=== PATIENT | male | born 1940 | race Caucasian/White ===

== ENCOUNTER → 2017-06-30 | Outpatient (CLI) | payer MEDICARE, OTHER ==
[~2017-06-30] MED LIST: ALFU10TA2 PO; ENAL20TA PO; FINA5TAB2 PO; GLIP5TAB8 PO; HYDR25TA5 PO; MOBI15TA PO; PRAV20TA2 PO; VITA2000 PO
[2017-06-30 09:06] LABS: AUTOMATED NEUTROPHIL # 4.6 TH/MM3 (1.8-7.7); BASOPHIL % 0.5 % (0.0-2.0); EOSINOPHIL # 0.1 TH/MM3 (0-0.4); EOSINOPHIL % 0.7 % (0.0-4.0); HEMOGLOBIN 14.1 GM/DL (13.0-17.0); LYMPH % 24.1 % (9.0-44.0); LYMPHOCYTE # 1.7 TH/MM3 (1.0-4.8); MEAN CELL VOLUME 93.7 FL (80.0-100.0); MEAN CORPUSCULAR HEMOGLOBIN 32.3 PG (27.0-34.0); MEAN CORPUSCULAR HGB CONC 34.4 % (32.0-36.0); MEAN PLATELET VOLUME 7.1 FL (7.0-11.0); MONO % 7.5 % (0.0-8.0); MONOCYTE # 0.5 TH/MM3 (0-0.9); NEUT % 67.2 % (16.0-70.0); PLATELET COUNT 211 TH/MM3 (150-450); RED BLOOD COUNT 4.38 MIL/MM3 (4.50-5.90); RED CELL DISTRIBUTION WIDTH 13.4 % (11.6-17.2); WHITE BLOOD COUNT 6.9 TH/MM3 (4.0-11.0)
[2017-06-30 09:24] LABS: ALBUMIN 3.5 GM/DL (3.4-5.0); AST (GOT) 16 U/L (15-37); BICARBONATE 31.1 MEQ/L (21.0-32.0); BLOOD UREA NITROGEN 9 MG/DL (7-18); CALCIUM 9.2 MG/DL (8.5-10.1); CHLORIDE 102 MEQ/L (98-107); GLOMERULAR FILTRATION RATE 82 ML/MIN (>89); GLUCOSE,FASTING 127 MG/DL (74-99); SODIUM (NA) 140 MEQ/L (136-145)
[2017-06-30 09:25] LABS: ALT (GPT) 27 U/L (12-78); WESTERGREN SEDIMENTATION RATE 18 mm/hr (0-20)
[2017-06-30 09:27] LABS: ALKALINE PHOSPHATASE 72 U/L (45-117); TOTAL BILIRUBIN ADULT 0.4 MG/DL (0.2-1.0)
[2017-06-30 09:47] LABS: BILIRUBIN, URINE NEG (NEG); BLOOD, URINE NEG (NEG); GLUCOSE,URINE NEG (NEG); KETONE, URINE NEG (NEG); NITRITE,URINE NEG (NEG); URINE COLOR YELLOW (YELLW/STRAW); URINE LEUKOCYTE ESTERASE NEG (NEG)
[2017-06-30 09:53] LABS: SQUAMOUS EPITHELIAL CELL URINE <1 /hpf (0-5)
--- NOTE | 2017-06-30 20:45 | EKG ---
Date Performed: 06/30/2017 Time Performed: 09:22:38 PTAGE: 77 years EKG: Sinus rhythm LOW QRS VOLTAGE IN EXTREMITY LEADS BORDERLINE ECG Since the previous tracing, no significant change noted NO PREVIOUS TRACING DOCTOR: Mague Espinoza Interpretating Date/Time 06/30/2017 16:49:43
== END ==
LOC: CPRE 08:30
PROVIDERS: ATTEND Orthopaedic Surgery Sports Medicine
DX: Z01.812 Encounter for preprocedural laboratory examination (principal); Z01.810 Encounter for preprocedural cardiovascular examination; M25.50 Pain in unspecified joint; M16.11 Unilateral primary osteoarthritis, right hip; Z96.60 Presence of unspecified orthopedic joint implant; Z79.01 Long term (current) use of anticoagulants
CPT/HCPCS: 36415; 80053; 81001; 85025; 85610; 85652; 85730; 93005

== ENCOUNTER 2017-07-17 05:07 | Inpatient (IN) | payer MEDICARE, OTHER ==
[~2017-07-17] VITALS: Ht 182.9 cm; Wt 100.1 kg
[2017-07-17] MEDS ORDERED: POVIDONE IODINE 5% (ANTISEPSIS KIT) 4 APPLICATIONS EACH NARE PRN (05:45)
[2017-07-17] MEDS ORDERED: CHLORHEXIDINE GLUCONATE 4% SOLN 120 ML BTL TOPICAL SCH (05:45)
[2017-07-17] MEDS ORDERED: POVIDONE IODINE 7.5% SCRUB 118 ML BOTTLE TOPICAL SCH (05:45)
[2017-07-17] MEDS ORDERED: ceFAZolin 2 GM PREMIX 50 ML IV SCH (05:45)
[2017-07-17] MEDS ORDERED: SODIUM CHLORID 0.9% 500 ML IV PRN (05:45)
[2017-07-17] MEDS ORDERED: METOPROLOL TARTRATE 25 MG TAB PO PRN (05:45)
[2017-07-17] MEDS ORDERED: DEXAMETHASONE SOD PHOS 20 MG/5 ML VIAL IV PUSH ONE (05:45)
[2017-07-17] MEDS ORDERED: EXPAREL PERI-ARTICULAR INJECTION (TOTAL VOL. 60 ML) P-ARTICULR SCH ×2 (05:45)
[2017-07-17] MEDS ORDERED: CHLORHEXIDINE GLUCONATE 2 % 1 PACK (2 CLOTHS) TOPICAL PRN (05:45)
[2017-07-17] MEDS ORDERED: LACTATED RINGER'S 1000 ML IV PRN (05:45)
[2017-07-17] MEDS ORDERED: VANCOMYCIN 1 GM/200 ML PREMIX IV SCH (06:00)
[2017-07-17] MEDS ORDERED: GENTAMICIN SULFATE 80 MG/2 ML VIAL ONE (06:14)
[2017-07-17] MEDS ORDERED: NALOXONE HCL 0.4 MG/ML AMP IV PUSH PRN (06:30)
[2017-07-17] MEDS ORDERED: ZOLPIDEM TARTRATE 5 MG TAB PO PRN (06:30)
[2017-07-17] MEDS ORDERED: Post-op Orders (for Pharmacy) XX ONE (06:30)
[2017-07-17] MEDS ORDERED: MORPHINE SULFATE 4 MG/ML INJ IV PUSH PRN (06:30)
[2017-07-17] MEDS ORDERED: diphenhydrAMINE HCL 50 MG/ML VIAL IV PUSH PRN (06:30)
[2017-07-17] MEDS ORDERED: HYDR-3288 PO (06:33)
[2017-07-17] MEDS ORDERED: ASPI81CH6 CHEW (06:33)
[2017-07-17] MEDS ORDERED: TRANEXAMIC ACID IV SCH (07:00)
[2017-07-17] MEDS ORDERED: SODIUM CHLORIDE 0.9% IV SCH (07:00)
[2017-07-17] MEDS ORDERED: TRANEXAMIC PERI-ARTICULAR 3,000 MG/NS 100 ML P-ARTICULR SCH ×2 (07:00)
[2017-07-17] MEDS ORDERED: ONDANSETRON ODT 4 MG TAB PO PRN (07:15)
[2017-07-17] MEDS: SODIUM CHLOR 0.9% 1000 ML INJ 1,000 ML IV SCH (08:35)
[2017-07-17] MEDS ORDERED: DO NOT ADM ANY ANTICOAGULANT DRUGS PRN (08:40)
[2017-07-17] MEDS ORDERED: MIDAZOLAM HCL 2 MG/2 ML VIAL ONE (08:43)
[2017-07-17] MEDS ORDERED: *morphine SULFATE 4 MG/ML PERIprocedure ONLY ONE ×3 (08:56→09:24)
--- NOTE | 2017-07-17 08:58 | RADRPT ---
EXAM DATE/TIME: 07/17/2017 07:10 [facility] COMPARISON: No previous studies available for comparison. INDICATIONS : Right hip total arthroplasty. MEDICAL HISTORY : Unobtainable. SURGICAL HISTORY : Unobtainable. ENCOUNTER: Initial ACUITY: 1 day PAIN SCORE: Non-responsive. LOCATION: Right hip FINDINGS: Right total hip arthroplasty is present. Hardware appears intact. Alignment is anatomic. The adjacent pelvis is otherwise unremarkable. CONCLUSION: Satisfactory appearance post right TEDDY Jas Schulz MD on July 17, 2017 at 8:55 Board Certified Radiologist. This report was verified electronically.
--- NOTE | 2017-07-17 09:14 | MP ---
cc: Aryan Mcmanus MD DATE OF OPERATION: 07/17/2017 PREOPERATIVE DIAGNOSIS: Right hip osteoarthritis. POSTOPERATIVE DIAGNOSIS: Right hip osteoarthritis. PROCEDURE PERFORMED: Right total hip arthroplasty. SURGEON: Aryan Mcmanus MD. BRIM FLEXER: CRISTAL Collins. ANESTHESIA: General. ESTIMATED BLOOD LOSS: 200 mL. COMPLICATIONS: None. IMPLANTS USED: DePuy Corail size 54 solid [place] Gription cup, size 12 press fit standard offset Corail femoral stem, 36 mm cobalt chrome head, +1.5 neck, 36 mm highly cross-linked neutral polyethylene liner. JUSTIFICATION: This patient is a 77-year-old male with a history of severe end-stage osteoarthritis involving the right hip. He has severe disabling pain with standing, walking, ambulating and weight-bearing activities, and severe pain at rest. He has failed greater than 3 months of nonoperative conservative treatment to include medication therapy, injections, ambulatory assisted aids, home exercise program, activity modification and weight loss. X-rays of the right hip revealed severe osteoarthritis with [id number] joint space narrowing, subchondral sclerosis, subchondral cyst, osteophyte formation with superolateral subluxation. The patient was counseled as to the risks, benefits, and alternatives to a total hip arthroplasty. The risks were discussed, which include, but not limited to anesthesia, bleeding, infection, damage to nerves and blood vessels, pain, stiffness, fracture dislocations, leg length discrepancies, blood clots, pulmonary embolism, and even . The patient's pain is severe. He favored the benefits over the risks and did wish to proceed with surgery. PROCEDURE IN DETAIL: Written consent was obtained. The patient identified by name, taken to the operating room, placed supine on the operating room table. General anesthesia was administered, as well as two grams of IV Ancef and 1 gram of IV vancomycin. The right foot was placed in the padded traction boot, as well as the left foot. All bony prominences and pressure points were well padded. The right hip and right lower extremity prepped and draped using Isuprel alcohol, Hibiclens solution and ChloraPrep solution. After a time-out was performed, a longitudinal incision made over the anterolateral aspect of the right hip. The fascial layer was incised. Dissection was carried over the tensor fascia shaina and beneath the rectus femoris to allow exposure of the anterior hip capsule. A capsulotomy incision was performed. An oscillating saw was used to perform a femoral neck cut. The osteoarthritic femoral head and neck component was removed. A #10 blade scalpel was used to excise the labrum. Sequential reaming began at size 45 and was carried through to size 54. A solid [place] Gription cup size 54 was then implanted in approximately 45 degrees of abduction, 10 degrees of anteversion. There was good purchase and fixation after insertion of the cup. A screw hole eliminator was placed, followed by the neutral highly cross-linked polyethylene liner. The liner was impacted in place and tested for stability. Attention was turned to the femur. The leg was externally rotated, extended and adducted. The capsule was released off the undersurface of the greater trochanter to allow for elevation and lateralization of the femur. A box cutting osteotome was used and entered into the intramedullary canal of the femur, followed by canal finder and sequential broaching to size 12. Calcar planer was used to plane the calcar. Trial head and neck combinations were evaluated and final components implanted with the current components. The leg could achieve external rotation of 70 degrees and extension all the way down to the ground without evidence of anterior instability or impingement. Fluoroscopic imaging showed appropriate implantation of components. The surgical wound was thoroughly irrigated with sterile saline pulse lavage antibiotic impregnated solution. The fascial layer was closed with #1 Vicryl suture. Subcutaneous layer 2-0 Vicryl suture and skin was closed with Dermabond. Sterile dressing applied. The patient tolerated the procedure well. No intraoperative complications noted. Stephen Cook, Physician Wire Roller Certified was present for the entire procedure to include the patient positioning and the procedure itself. The medical necessity of a physician web production assistant was indicated in this case due to the complexity of the procedure. He assisted with appropriate manipulation of the leg and also retraction of muscle, tendon, bone and neurovascular strictures. He assisted with preparation of bone and also implantation of the prosthetic replacement. Aryan Mcmanus MD [facility] , 08:25 AM , 09:13 AM
[2017-07-17] MEDS: PRAVASTATIN SOD 20 MG TAB PO SCH (11:19)
[2017-07-17] MEDS: FINASTERIDE 5 MG TAB PO SCH (11:19)
[2017-07-17] MEDS: ACETAMINOPHEN/HYDROcodone 325 MG/10 MG TAB PO PRN ×2 (11:20→21:30)
--- NOTE | 2017-07-17 11:24 | HHI.FF ---
Face to Face Verification Diagnosis: (1) Primary localized osteoarthrosis, pelvic region and thigh Physical Therapy Gait training, Safety evaluation, Transfer training, bed to chair Hip: Total hip, Protocol: Right, Progress to weight bearing Right LE Weight Bearing: WB as tolerated Nursing RN: 3 days/week x 2 weeks Nursing: Dressing changes Dressing Changes: Daily dressing change I have seen patient Agustín GunterJr on 07/17/17. My clinical findings support the need for the requested home health care services because: Limited ability to care for self High risk of falls I certify that my clinical findings support that this patient is homebound because: Post-op weakness Unsteady gait/balance Aryan Cook July 17, 2017 11:24
--- NOTE | 2017-07-17 11:24 | HHI.DCPOC ---
Discharge Care Plan Diagnosis: (1) Primary localized osteoarthrosis, pelvic region and thigh Your Health Problems Are: Difficulty with ADL Goals to Promote Your Health * To prevent worsening of your condition and complications * To maintain your health at the optimal level Directions to Meet Your Goals Take your medications as prescribed Follow your dietary instruction Follow activity as directed Keep your appointments as scheduled Take your immunizations and boosters as scheduled If your symptoms worsen call your PCP, if no PCP go to Urgent Care Center or Emergency Room Smoking is Dangerous to Your Health. Avoid second hand smoke Call the 24-hour hour crisis hotline for domestic abuse at Aryan Cook July 17, 2017 11:24
[2017-07-17] MEDS: TAMSULOSIN HCL 0.4 MG CAP PO SCH (11:29)
[2017-07-17 12:00] VITALS: BP 128/63; PULSE 103; RESP 17; TEMP 97.2; O2SAT 98
[2017-07-17] MEDS ORDERED: ESMOLOL HCL 100 MG/10 ML VIAL IV ONE (12:00)
[2017-07-17] MEDS ORDERED: GLYCOPYRROLATE 1 MG/5 ML SYRINGE IV PUSH ONE (12:00)
[2017-07-17] MEDS ORDERED: PROPOFOL 200 MG/20 ML AMP IV ONE (12:00)
[2017-07-17] MEDS ORDERED: PHENYLEPH/NS 1000 MCG/10 ML SYR IV ONE (12:00)
[2017-07-17] MEDS ORDERED: ePHEDrine/NS 25 MG/5 ML SYRINGE IV ONE (12:00)
[2017-07-17] MEDS ORDERED: NEOSTIGMINE 5 MG/5 ML SYRINGE IV PUSH ONE (12:00)
[2017-07-17] MEDS ORDERED: METOPROLOL TARTRATE 5 MG/5 ML VIAL IV ONE (12:00)
[2017-07-17] MEDS ORDERED: ONDANSETRON HCL 4 MG/2 ML VIAL IV PUSH ONE (12:00)
[2017-07-17] MEDS ORDERED: ROCURONIUM INJ 50 MG/5 ML SYRINGE IV PUSH ONE (12:00)
--- NOTE | 2017-07-17 14:11 | PD.CONS ---
HPI Service [facility] Consult Requested By Dr. Mcmanus Reason for Consult Medical management Primary Care Physician Yaz Treadwell Diagnoses: Past Family Social History Allergies: Coded Allergies: No Known Allergies (Verified Adverse Reaction, Unknown, 07/17/17) Past Medical History Osteoarthritis Hypertension Diabetes mellitus Hyperlipidemia BPH Past Surgical History Lymph node removal from axilla Hemorrhoid surgery Reported Medications Alfuzosin 10 mg daily Pravastatin 20 mg daily Enalapril 20 mg daily Mobic 15 mg twice weekly HCTZ 25 mg daily Glipizide Vitamin D3 daily Finasteride 5 mg daily Family History Mother had cancer. Sister of [place]. Social History Quit smoking 30 years ago. Drinks 1 beer twice weekly. Denies illicit drug use. Physical Exam Vital Signs Vital Signs Date Time Temp Pulse Resp B/P (MAP) Pulse Ox O2 Delivery O2 Flow Rate FiO2 07/17/17 12:00 97.2 103 17 128/63 (84) 98 07/17/17 09:30 97.4 98 14 134/62 (86) 98 Nasal Cannula 2 07/17/17 09:15 93 14 134/63 (86) 97 Nasal Cannula 2 07/17/17 09:00 96 17 138/62 (87) 97 Nasal Cannula 2 07/17/17 08:45 101 18 139/63 (88) 97 Nasal Cannula 2 07/17/17 08:37 97.7 104 14 130/64 (86) 99 Nasal Cannula 2 07/17/17 05:40 98.3 128 16 133/75 (94) 98 Physical Exam GENERAL: Elderly male in no acute distress. Sitting up in a chair. HEENT: Normocephalic, atraumatic. Pupils equal, round and reactive. Extraocular movements intact. No scleral icterus. No injection or drainage. Oropharynx is clear. Mucous membranes are moist. CARDIOVASCULAR: Regular rate and rhythm without murmurs, gallops, or rubs. RESPIRATORY: Clear to auscultation. No wheezes, rales, or rhonchi. Breathing is non-labored. GASTROINTESTINAL: Abdomen soft, non-tender, nondistended. EXTREMITIES: No lower extremity edema. No calf tenderness. PSYCH: Alert and oriented x 3. Imaging Last Impressions Hip X-Ray 07/17/17 0000 Signed Impressions: Service Date/Time: Monday, July 17, 2017 07:10 - CONCLUSION: Satisfactory appearance post right TEDDY Jas Schulz MD Assessment and Plan Assessment and Plan 1. Osteoarthritis: Status post right total hip arthroplasty. Management per orthopedic surgery. Continue pain control, bowel regimen, physical therapy. 2. Diabetes mellitus: Monitor Accu-Cheks and cover with sliding scale insulin. Continue glipizide. 3. BPH: Continue alfuzosin, finasteride. 4. Hypertension: Continue enalapril, HCTZ. 5. Hyperlipidemia: Continue statin. 6. DVT prophylaxis: Lovenox. Cesar Perez MD July 17, 2017 14:11
[2017-07-17 16:00] VITALS: BP 111/63; PULSE 98; RESP 17; TEMP 97.2; O2SAT 98
--- NOTE | 2017-07-17 16:03 | RADRPT ---
EXAM DATE/TIME: 07/17/2017 15:40 [facility] COMPARISON: No previous studies available for comparison. INDICATIONS : Post operative right hip. MEDICAL HISTORY : None. SURGICAL HISTORY : None. ENCOUNTER: Initial ACUITY: 1 day PAIN SCORE: 0/10 LOCATION: Right hip. FINDINGS: Examination of the right hip was performed with AP Pelvis. Post surgical changes following right hip replacement are noted. Femoral and acetabular components ar e well seated and satisfactorily aligned. There are no acute bony complications. CONCLUSION: Satisfactory postoperative appearance following right hip replacement. Amrik Dang MD on July 17, 2017 at 16:00 Board Certified Radiologist. This report was verified electronically.
[2017-07-17 19:47] VITALS: BP 130/61; PULSE 91; RESP 18; TEMP 97.2; O2SAT 96
[2017-07-17] MEDS: HYDROCHLOROTHIAZIDE 25 MG TAB PO SCH (21:28)
[2017-07-18 00:02] VITALS: BP 118/66; PULSE 107; RESP 18; TEMP 97.6; O2SAT 98
[2017-07-18] MEDS: SODIUM CHLOR 0.9% 1000 ML INJ 1,000 ML IV SCH ×3 (04:04→23:30)
[2017-07-18] MEDS: ACETAMINOPHEN/HYDROcodone 325 MG/10 MG TAB PO PRN ×4 (04:04→20:51)
[2017-07-18 05:24] LABS: HEMATOCRIT 36.9 % (39.0-51.0); HEMOGLOBIN 12.5 GM/DL (13.0-17.0); MEAN CELL VOLUME 93.5 FL (80.0-100.0); MEAN CORPUSCULAR HEMOGLOBIN 31.6 PG (27.0-34.0); MEAN CORPUSCULAR HGB CONC 33.8 % (32.0-36.0); MEAN PLATELET VOLUME 7.3 FL (7.0-11.0); PLATELET COUNT 198 TH/MM3 (150-450); RED BLOOD COUNT 3.95 MIL/MM3 (4.50-5.90); RED CELL DISTRIBUTION WIDTH 13.4 % (11.6-17.2); WHITE BLOOD COUNT 12.4 TH/MM3 (4.0-11.0)
[2017-07-18 05:47] LABS: BICARBONATE 32.2 MEQ/L (21.0-32.0); CALCIUM 8.3 MG/DL (8.5-10.1); CREATININE 0.92 MG/DL (0.60-1.30)
--- NOTE | 2017-07-18 07:50 | PD.ORT.PN ---
Subjective Post Op Day #: 1 Subjective Remarks pain controlled. Objective Vitals Vital Signs Date Time Temp Pulse Resp B/P (MAP) Pulse Ox O2 Delivery O2 Flow Rate FiO2 07/18/17 00:02 97.6 107 18 118/66 (83) 98 07/17/17 19:47 97.2 91 18 130/61 (84) 96 07/17/17 16:00 97.2 98 17 111/63 (79) 98 07/17/17 12:00 97.2 103 17 128/63 (84) 98 07/17/17 09:30 97.4 98 14 134/62 (86) 98 Nasal Cannula 2 07/17/17 09:15 93 14 134/63 (86) 97 Nasal Cannula 2 07/17/17 09:00 96 17 138/62 (87) 97 Nasal Cannula 2 07/17/17 08:45 101 18 139/63 (88) 97 Nasal Cannula 2 07/17/17 08:37 97.7 104 14 130/64 (86) 99 Nasal Cannula 2 I/O 07/17/17 07/17/17 07/17/17 07/18/17 07/18/17 07/18/17 06:59 14:59 22:59 06:59 14:59 22:59 Intake Total 238 ml 450 ml 720 ml Output Total 300 ml Balance -62 ml 450 ml 720 ml Intake Oral 30 ml 450 ml 720 ml IV Total 58 ml Other 150 ml Output Estimated Blood Loss 300 ml # Voids 0 2 5 # Bowel Movements 0 Result Diagram: 07/18/17 0506 07/18/17 0506 Objective Remarks in chair, nad dressing c/d/i thigh soft neg homans nvi Assessment & Plan Ortho Post Op Day #: 1 Problem List: Assessment and Plan s/p R TEDDY wbat ok to maintain dressing unless saturated lovenox, d/c on asa81 d/c planning to snf rx in chart f/up dr. cortes 2 weeks Aryan Cook July 18, 2017 07:50
[2017-07-18 08:00] VITALS: BP 118/64; PULSE 95; RESP 18; TEMP 97.9; O2SAT 95
--- NOTE | 2017-07-18 10:00 | HHI.PR ---
Subjective Remarks Follow-up for s/p right TEDDY, DM, HTN, HLD, BPH. Patient has no specific medical complaints today. Reports right hip pain is fairly well controlled with pain medications. Denies any fever/chills, lightheadedness/dizziness, chest pain, shortness of breath, or abdominal complaints. His last bowel movement was on Sunday 07/16. He is tolerating oral intake. Vital signs reviewed and stable. Objective Vitals Vital Signs Date Time Temp Pulse Resp B/P (MAP) Pulse Ox O2 Delivery O2 Flow Rate FiO2 07/18/17 08:00 97.9 95 18 118/64 (82) 95 07/18/17 00:02 97.6 107 18 118/66 (83) 98 07/17/17 19:47 97.2 91 18 130/61 (84) 96 07/17/17 16:00 97.2 98 17 111/63 (79) 98 07/17/17 12:00 97.2 103 17 128/63 (84) 98 I/O 07/17/17 07/17/17 07/17/17 07/18/17 07/18/17 07/18/17 07:00 15:00 23:00 07:00 15:00 23:00 Intake Total 238 ml 450 ml 720 ml Output Total 300 ml Balance -62 ml 450 ml 720 ml Intake Oral 30 ml 450 ml 720 ml IV Total 58 ml Other 150 ml Output Estimated Blood Loss 300 ml # Voids 0 2 5 # Bowel Movements 0 Result Diagram: 07/18/17 0506 07/18/17 0506 Imaging Last Impressions Hip and Pelvis X-Ray 07/17/17 0000 Signed Impressions: Service Date/Time: Monday, July 17, 2017 15:40 - CONCLUSION: Satisfactory postoperative appearance following right hip replacement. Amrik Dang MD Hip X-Ray 07/17/17 0000 Signed Impressions: Service Date/Time: Monday, July 17, 2017 07:10 - CONCLUSION: Satisfactory appearance post right TEDDY Jas Schulz MD Objective Remarks GENERAL: Well-nourished, well-developed pleasant male patient in [employer]. SKIN: Warm and dry. No rash. HEENT: Normocephalic. Atraumatic. Pupils equal and round. Mucous membranes pink and moist. CARDIOVASCULAR: Regular rate and rhythm. No murmur appreciated. RESPIRATORY: No accessory muscle use. Clear to auscultation. Breath sounds equal bilaterally. GASTROINTESTINAL: Abdomen soft, non-tender, nondistended. Normoactive bowel sounds x4. MUSCULOSKELETAL: No obvious deformities. Trace bilateral lower extremity edema. Right hip with surgical dressing, CDI. NEUROLOGICAL: Awake and alert. No obvious cranial nerve deficits. Motor grossly within normal limits. Moving all extremities spontaneously. Normal speech. PSYCHIATRIC: Appropriate mood and affect; insight and judgment normal. Procedures 07/17/17 - right total hip arthroplasty by Dr. Mcmanus Medications and IVs Current Medications Medications (Trade) Dose Ordered Sig/Kasandra Route Start Time Stop Time Status Last Admin Lactated Ringer's 1,000 ml @ 30 mls/hr Q24H PRN IV 07/17/17 05:45 07/20/17 05:44 07/17/17 05:45 Sodium Chloride 500 ml @ 30 mls/hr [id number] PRN IV 07/17/17 05:45 07/20/17 05:44 (Lopressor) 25 mg POWDER BLENDER AND POURER PRN PO 07/17/17 05:45 07/20/17 05:44 (Betadine 5% Antisepsis Kit) 1 applic POWDER BLENDER AND POURER PRN EACH NARE 07/17/17 05:45 07/20/17 05:44 07/17/17 06:00 (Chlorhexidine 2% Cloth) 3 pack POWDER BLENDER AND POURER PRN TOPICAL 07/17/17 05:45 07/20/17 05:44 07/17/17 05:30 (Betadine 7.5% Scrub) 1 applic ONCE TOPICAL 07/17/17 05:45 07/20/17 05:44 07/17/17 05:45 (Hibiclens 4% Top Soln) 1 applic ONCE TOPICAL 07/17/17 05:45 07/20/17 05:44 Cefazolin Sodium/ Dextrose 50 ml @ 100 mls/hr POWDER BLENDER AND POURER IV 07/17/17 05:45 07/20/17 05:44 07/17/17 06:10 (Vasotec) 20 mg DAILY PO 07/18/17 09:00 (Proscar) 5 mg DAILY PO 07/17/17 09:00 07/17/17 11:19 (Glucotrol) 2.5 mg BID PO 07/18/17 09:00 (Hydrodiuril) 25 mg HS PO 07/17/17 21:00 07/17/17 21:28 (Pravachol) 20 mg DAILY PO 07/17/17 09:00 07/17/17 11:19 (Flomax) 0.4 mg DAILY PO 07/17/17 10:00 07/17/17 11:29 Sodium Chloride 1,000 ml @ 100 mls/hr Q10H IV 07/17/17 07:30 07/18/17 04:04 (Lovenox Inj) 40 mg Q24H SQ 07/18/17 08:00 07/27/17 08:01 (Morphine Inj) 3 mg Q3H PRN IV PUSH 07/17/17 06:30 ([place] 10-325 Mg) 1 tab Q4H PRN PO 07/17/17 06:30 07/18/17 04:04 ([place] 10-325 Mg) 2 tab Q6H PRN PO 07/17/17 06:30 07/17/17 21:30 (Theragran M Tab) 1 tab BID PO 07/18/17 21:00 09/16/17 20:59 (Zofran Odt) 4 mg Q6H PRN PO 07/17/17 07:15 (Colace) 100 mg BID PO 07/18/17 21:00 (Ambien) 5 mg HS PRN PO 07/17/17 06:30 (Narcan Inj) 0.4 mg UNSCH PRN IV PUSH 07/17/17 06:30 (Benadryl Inj) 25 mg Q6H PRN IV PUSH 07/17/17 06:30 A/P Assessment and Plan 77-year-old male with history of osteoarthritis, hypertension, hyperlipidemia, diabetes mellitus, BPH, admitted to [facility] for right total hip arthroplasty by Dr. Mcmanus. Hospitalist consulted for medical management. Osteoarthritis s/p right total hip arthroplasty: Surgery 07/17/[address] Mcmanus -Pain control with [place] prn, IV morphine prn -DVT prophylaxis with Lovenox, per Ortho -Continue physical therapy -Cleared for discharge to rehab by orthopedics Hypertension/hyperlipidemia: Chronic, stable -Continue patient's enalapril, HCTZ, statin -Monitor BP, adjust antihypertensives as needed Diabetes mellitus: Chronic, stable -Continue patient's glipizide -Monitor Accu-Cheks, cover with SSI -Diabetic diet BPH: Chronic -Continue patient's alfuzosin and finasteride -Patient voiding spontaneously DVT prophylaxis: Lovenox Discharge Planning Patient is medically clear for discharge to SNF when arrangements made. Mirella Escalera PA-C July 18, 2017 10:00
[2017-07-18] MEDS: ENALAPRIL MALEATE 10 MG TAB PO SCH (10:48)
[2017-07-18] MEDS: PRAVASTATIN SOD 20 MG TAB PO SCH (10:48)
[2017-07-18] MEDS: glipiZIDE 5 MG TAB PO SCH ×2 (10:48→20:50)
[2017-07-18] MEDS: FINASTERIDE 5 MG TAB PO SCH (10:48)
[2017-07-18] MEDS: TAMSULOSIN HCL 0.4 MG CAP PO SCH (10:48)
[2017-07-18] MEDS: ENOXAPARIN SODIUM 40 MG/0.4 ML SYRINGE SQ SCH (10:52)
[2017-07-18 12:00] VITALS: BP 130/61; PULSE 98; RESP 17; TEMP 98.8; O2SAT 95
[2017-07-18 20:00] VITALS: BP 120/58; PULSE 96; RESP 20; TEMP 98.2; O2SAT 97
[2017-07-18] MEDS: DOCUSATE SODIUM 100 MG CAP PO SCH (20:49)
[2017-07-18] MEDS: MULTIVITAMINS/MINERALS THERAPEUTIC TAB PO SCH (20:49)
[2017-07-18] MEDS: HYDROCHLOROTHIAZIDE 25 MG TAB PO SCH (20:50)
[2017-07-19] VITALS: BP 122/72; PULSE 115; RESP 20; TEMP 98; O2SAT 94
[2017-07-19 05:41] LABS: HEMATOCRIT 36.4 % (39.0-51.0); HEMOGLOBIN 12.4 GM/DL (13.0-17.0); MEAN CELL VOLUME 94.2 FL (80.0-100.0); MEAN CORPUSCULAR HEMOGLOBIN 32.2 PG (27.0-34.0); MEAN CORPUSCULAR HGB CONC 34.2 % (32.0-36.0); MEAN PLATELET VOLUME 7.2 FL (7.0-11.0); PLATELET COUNT 179 TH/MM3 (150-450); RED BLOOD COUNT 3.86 MIL/MM3 (4.50-5.90); RED CELL DISTRIBUTION WIDTH 13.4 % (11.6-17.2); WHITE BLOOD COUNT 9.7 TH/MM3 (4.0-11.0)
[2017-07-19 06:12] LABS: BICARBONATE 30.8 MEQ/L (21.0-32.0); CALCIUM 8.6 MG/DL (8.5-10.1); CREATININE 0.83 MG/DL (0.60-1.30)
[2017-07-19] MEDS: ACETAMINOPHEN/HYDROcodone 325 MG/10 MG TAB PO PRN ×3 (06:50→21:35)
--- NOTE | 2017-07-19 07:18 | PD.ORT.PN ---
Subjective Post Op Day #: 2 Subjective Remarks pain controlled. doing well. Objective Vitals Vital Signs Date Time Temp Pulse Resp B/P (MAP) Pulse Ox O2 Delivery O2 Flow Rate FiO2 07/19/17 00:00 98.0 115 20 122/72 (89) 94 07/18/17 20:00 98.2 96 20 120/58 (78) 97 07/18/17 19:10 Room Air 07/18/17 12:00 98.8 98 17 130/61 (84) 95 07/18/17 08:00 97.9 95 18 118/64 (82) 95 I/O 07/18/17 07/18/17 07/18/17 07/19/17 07/19/17 07/19/17 07:00 15:00 23:00 07:00 15:00 23:00 Intake Total 720 ml 1020 ml Balance 720 ml 1020 ml Intake Oral 720 ml 720 ml IV Total 300 ml # Voids 5 4 # Bowel Movements 0 0 Result Diagram: 07/19/17 0505 07/19/17 0505 Objective Remarks in chair, nad dressing c/d/i thigh soft neg homans nvi Assessment & Plan Ortho Post Op Day #: 2 Problem List: Assessment and Plan s/p R TEDDY wbat ok to maintain dressing unless saturated lovenox, d/c on asa81 d/c planning to snf - likely Thurs rx in chart f/up dr. cortes 2 weeks Aryan Cook July 19, 2017 07:18
[2017-07-19 08:00] VITALS: BP 119/58; PULSE 99; RESP 18; TEMP 97.9; O2SAT 96
[2017-07-19] MEDS: MULTIVITAMINS/MINERALS THERAPEUTIC TAB PO SCH ×2 (08:58→21:34)
[2017-07-19] MEDS: ENALAPRIL MALEATE 10 MG TAB PO SCH (08:58)
[2017-07-19] MEDS: glipiZIDE 5 MG TAB PO SCH ×2 (08:58→21:35)
[2017-07-19] MEDS: DOCUSATE SODIUM 100 MG CAP PO SCH (08:59)
[2017-07-19] MEDS: TAMSULOSIN HCL 0.4 MG CAP PO SCH (08:59)
[2017-07-19] MEDS: FINASTERIDE 5 MG TAB PO SCH (08:59)
[2017-07-19] MEDS: PRAVASTATIN SOD 20 MG TAB PO SCH (08:59)
[2017-07-19] MEDS: ENOXAPARIN SODIUM 40 MG/0.4 ML SYRINGE SQ SCH (09:00)
[2017-07-19] MEDS: SODIUM CHLOR 0.9% 1000 ML INJ 1,000 ML IV SCH ×2 (09:30→19:30)
--- NOTE | 2017-07-19 11:26 | HHI.PR ---
Subjective Remarks Follow up for R TEDDY, DM, HTN, HLD, BPH. Pain well controlled, currently 3-06/06. Still no BM since Sunday 07/16, although denies any abdominal pain or nausea/ vomiting. Tolerating oral intake. Denies any other medical complaints at this time. Objective Vitals Vital Signs Date Time Temp Pulse Resp B/P (MAP) Pulse Ox O2 Delivery O2 Flow Rate FiO2 07/19/17 08:00 97.9 99 18 119/58 (78) 96 07/19/17 00:00 98.0 115 20 122/72 (89) 94 07/18/17 20:00 98.2 96 20 120/58 (78) 97 07/18/17 19:10 Room Air 07/18/17 12:00 98.8 98 17 130/61 (84) 95 I/O 07/18/17 07/18/17 07/18/17 07/19/17 07/19/17 07/19/17 06:59 14:59 22:59 06:59 14:59 22:59 Intake Total 720 ml 1020 ml Balance 720 ml 1020 ml Intake Oral 720 ml 720 ml IV Total 300 ml # Voids 5 4 # Bowel Movements 0 0 Result Diagram: 07/19/17 0505 07/19/17 0505 Imaging Last Impressions Hip and Pelvis X-Ray 07/17/17 0000 Signed Impressions: Service Date/Time: Monday, July 17, 2017 15:40 - CONCLUSION: Satisfactory postoperative appearance following right hip replacement. Amrik Dang MD Hip X-Ray 07/17/17 0000 Signed Impressions: Service Date/Time: Monday, July 17, 2017 07:10 - CONCLUSION: Satisfactory appearance post right TEDDY Jas Schulz MD Objective Remarks GENERAL: Well-nourished, well-developed pleasant male patient in [facility]. SKIN: Warm and dry. No rash. HEENT: Normocephalic. Atraumatic. Pupils equal and round. Mucous membranes pink and moist. CARDIOVASCULAR: Regular rate and rhythm. No murmur appreciated. RESPIRATORY: No accessory muscle use. Clear to auscultation. Breath sounds equal bilaterally. GASTROINTESTINAL: Abdomen soft, non-tender, nondistended. Normoactive bowel sounds x4. MUSCULOSKELETAL: No obvious deformities. Trace to 1+ bilateral lower extremity edema. Right hip with surgical dressing, CDI. NEUROLOGICAL: Awake and alert. No obvious cranial nerve deficits. Motor grossly within normal limits. Moving all extremities spontaneously. Normal speech. PSYCHIATRIC: Appropriate mood and affect; insight and judgment normal. Procedures 07/17/17 - right total hip arthroplasty by Dr. Mcmanus Medications and IVs Current Medications Medications (Trade) Dose Ordered Sig/Kasandra Route Start Time Stop Time Status Last Admin Lactated Ringer's 1,000 ml @ 30 mls/hr Q24H PRN IV 07/17/17 05:45 07/20/17 05:44 07/17/17 05:45 Sodium Chloride 500 ml @ 30 mls/hr [id number] PRN IV 07/17/17 05:45 07/20/17 05:44 (Lopressor) 25 mg PREPARATION SUPERVISOR FREEZING PRN PO 07/17/17 05:45 07/20/17 05:44 (Betadine 5% Antisepsis Kit) 1 applic PREPARATION SUPERVISOR FREEZING PRN EACH NARE 07/17/17 05:45 07/20/17 05:44 07/17/17 06:00 (Chlorhexidine 2% Cloth) 3 pack PREPARATION SUPERVISOR FREEZING PRN TOPICAL 07/17/17 05:45 07/20/17 05:44 07/17/17 05:30 (Betadine 7.5% Scrub) 1 applic ONCE TOPICAL 07/17/17 05:45 07/20/17 05:44 07/17/17 05:45 (Hibiclens 4% Top Soln) 1 applic ONCE TOPICAL 07/17/17 05:45 07/20/17 05:44 Cefazolin Sodium/ Dextrose 50 ml @ 100 mls/hr PREPARATION SUPERVISOR FREEZING IV 07/17/17 05:45 07/20/17 05:44 07/17/17 06:10 (Vasotec) 20 mg DAILY PO 07/18/17 09:00 07/19/17 08:58 (Proscar) 5 mg DAILY PO 07/17/17 09:00 07/19/17 08:59 (Glucotrol) 2.5 mg BID PO 07/18/17 09:00 07/19/17 08:58 (Hydrodiuril) 25 mg HS PO 07/17/17 21:00 07/18/17 20:50 (Pravachol) 20 mg DAILY PO 07/17/17 09:00 07/19/17 08:59 (Flomax) 0.4 mg DAILY PO 07/17/17 10:00 07/19/17 08:59 Sodium Chloride 1,000 ml @ 100 mls/hr Q10H IV 07/17/17 07:30 07/18/17 04:04 (Lovenox Inj) 40 mg Q24H SQ 07/18/17 08:00 07/27/17 08:01 07/19/17 09:00 (Morphine Inj) 3 mg Q3H PRN IV PUSH 07/17/17 06:30 ([place] 10-325 Mg) 1 tab Q4H PRN PO 07/17/17 06:30 07/19/17 06:50 ([place] 10-325 Mg) 2 tab Q6H PRN PO 07/17/17 06:30 07/18/17 15:48 (Theragran M Tab) 1 tab BID PO 07/18/17 21:00 09/16/17 20:59 07/19/17 08:58 (Zofran Odt) 4 mg Q6H PRN PO 07/17/17 07:15 (Colace) 100 mg BID PO 07/18/17 21:00 07/19/17 08:59 (Ambien) 5 mg HS PRN PO 07/17/17 06:30 (Narcan Inj) 0.4 mg UNSCH PRN IV PUSH 07/17/17 06:30 (Benadryl Inj) 25 mg Q6H PRN IV PUSH 07/17/17 06:30 A/P Assessment and Plan 77-year-old male with history of osteoarthritis, hypertension, hyperlipidemia, diabetes mellitus, BPH, admitted to [facility] for right total hip arthroplasty by Dr. Mcmanus. Hospitalist consulted for medical management. Osteoarthritis s/p right total hip arthroplasty: Surgery 07/17/[address] Mcmanus -Pain control with [place] prn, IV morphine prn -DVT prophylaxis with Lovenox, per Ortho -Continue physical therapy -Cleared for discharge to rehab by orthopedics, plan for d/c 07/20 Hypertension/hyperlipidemia: Chronic, stable -Continue patient's enalapril, HCTZ, statin -Monitor BP, adjust antihypertensives as needed Diabetes mellitus: Chronic, stable -Continue patient's glipizide -Monitor Accu-Cheks, cover with SSI -Diabetic diet BPH: Chronic -Continue patient's alfuzosin and finasteride -Patient voiding spontaneously Constipation: acute, last BM Sunday 07/16. Suspect opiate induced constipation. -Start on bronson-colace 1tab po bid -Constipation protocol meds with MOM prn, Dulcolax prn, Senokot prn -Discussed with RN to go prn meds if no BM today 07/19 DVT prophylaxis: Lovenox Discharge Planning Patient is medically clear for discharge. Plan to discharge to SNF on 07/20. Mirella Escalera PA-C July 19, 2017 11:26 am
[2017-07-19] MEDS ORDERED: BISACODYL 10 MG SUPP RECTAL PRN (11:30)
[2017-07-19] MEDS ORDERED: MAGNESIUM HYDROXIDE SUSP 30 ML CUP PO PRN (11:30)
[2017-07-19] MEDS ORDERED: SENNOSIDES 8.6 MG TAB PO PRN (11:30)
[2017-07-19 11:56] VITALS: BP 122/56; PULSE 103; RESP 18; TEMP 98; O2SAT 97
[2017-07-19] MEDS: DOCUSATE SODIUM 50 MG/SENNA 8.6 MG TAB PO SCH ×2 (12:24→21:34)
[2017-07-19 16:00] VITALS: BP 123/56; PULSE 119; RESP 18; TEMP 98.5; O2SAT 97
[2017-07-19 20:00] VITALS: BP 106/53; PULSE 104; RESP 22; TEMP 98.2; O2SAT 94
[2017-07-19] MEDS: HYDROCHLOROTHIAZIDE 25 MG TAB PO SCH (21:38)
[2017-07-20] VITALS: BP 113/56; PULSE 120; RESP 22; TEMP 97.6; O2SAT 95
[2017-07-20 01:09] VITALS: BP 127/55; PULSE 94; RESP 19; TEMP 97.8; O2SAT 96
[2017-07-20 04:00] VITALS: BP 114/58; PULSE 100; RESP 20; TEMP 97.9; O2SAT 95
[2017-07-20 05:13] LABS: HEMATOCRIT 33.7 % (39.0-51.0); HEMOGLOBIN 11.8 GM/DL (13.0-17.0); MEAN CELL VOLUME 93.4 FL (80.0-100.0); MEAN CORPUSCULAR HEMOGLOBIN 32.6 PG (27.0-34.0); MEAN CORPUSCULAR HGB CONC 34.9 % (32.0-36.0); MEAN PLATELET VOLUME 7.2 FL (7.0-11.0); PLATELET COUNT 180 TH/MM3 (150-450); RED CELL DISTRIBUTION WIDTH 13.8 % (11.6-17.2); WHITE BLOOD COUNT 7.5 TH/MM3 (4.0-11.0)
[2017-07-20] MEDS: SODIUM CHLOR 0.9% 1000 ML INJ 1,000 ML IV SCH (05:30)
[2017-07-20 05:36] LABS: BICARBONATE 35.2 MEQ/L (21.0-32.0); CALCIUM 8.5 MG/DL (8.5-10.1); CREATININE 0.81 MG/DL (0.60-1.30)
[2017-07-20 07:20] VITALS: BP 134/63; PULSE 96; RESP 17; TEMP 97.8; O2SAT 96
[2017-07-20] MEDS: DOCUSATE SODIUM 50 MG/SENNA 8.6 MG TAB PO SCH (10:17)
[2017-07-20] MEDS: ENALAPRIL MALEATE 10 MG TAB PO SCH (10:17)
[2017-07-20] MEDS: MULTIVITAMINS/MINERALS THERAPEUTIC TAB PO SCH (10:17)
[2017-07-20] MEDS: ENOXAPARIN SODIUM 40 MG/0.4 ML SYRINGE SQ SCH (10:17)
[2017-07-20] MEDS: FINASTERIDE 5 MG TAB PO SCH (10:17)
[2017-07-20] MEDS: TAMSULOSIN HCL 0.4 MG CAP PO SCH (10:17)
[2017-07-20] MEDS: glipiZIDE 5 MG TAB PO SCH (10:17)
[2017-07-20] MEDS: PRAVASTATIN SOD 20 MG TAB PO SCH (10:18)
--- NOTE | 2017-07-20 11:05 | HHI.PR ---
Subjective Remarks Follow up for R TEDDY, DM, HTN, HLD, BPH. Pain well controlled, currently 3-06/06. Still no BM since Sunday 07/16, although denies any abdominal pain or nausea/ vomiting. Tolerating oral intake. Denies any other medical complaints at this time. 07-20 patient states he has not had a bowel movement since Monday Needs to have a bowel movement We will need an enema Hopefully can still discharged to SNF later today Discussed with RN and patient and case management Objective Vitals Vital Signs Date Time Temp Pulse Resp B/P (MAP) Pulse Ox O2 Delivery O2 Flow Rate FiO2 07/20/17 07:20 97.8 96 17 134/63 (86) 96 07/20/17 04:00 97.9 100 20 114/58 (76) 95 07/20/17 01:09 97.8 94 19 127/55 (79) 96 07/20/17 00:00 97.6 120 22 113/56 (75) 95 07/19/17 22:35 19 07/19/17 22:14 Room Air 07/19/17 20:00 98.2 104 22 106/53 (70) 94 07/19/17 16:00 98.5 119 18 123/56 (78) 97 07/19/17 11:56 98.0 103 18 122/56 (78) 97 I/O 07/19/17 07/19/17 07/19/17 07/20/17 07/20/17 07/20/17 07:00 15:00 23:00 07:00 15:00 23:00 Intake Total 1020 ml 720 ml Balance 1020 ml 720 ml Intake Oral 720 ml 720 ml IV Total 300 ml # Voids 4 6 # Bowel Movements 0 0 Result Diagram: 07/20/17 0442 07/20/17 0442 Other Results Laboratory Tests Test 07/18/17 05:06 07/19/17 05:05 07/20/17 04:42 White Blood Count 12.4 TH/MM3 9.7 TH/MM3 7.5 TH/MM3 Red Blood Count 3.95 MIL/MM3 3.86 MIL/MM3 3.60 MIL/MM3 Hemoglobin 12.5 GM/DL 12.4 GM/DL 11.8 GM/DL Hematocrit 36.9 % 36.4 % 33.7 % Mean Corpuscular Volume 93.5 FL 94.2 FL 93.4 FL Mean Corpuscular Hemoglobin 31.6 PG 32.2 PG 32.6 PG Mean Corpuscular Hemoglobin Concent 33.8 % 34.2 % 34.9 % Red Cell Distribution Width 13.4 % 13.4 % 13.8 % Platelet Count 198 TH/MM3 179 TH/MM3 180 TH/MM3 Mean Platelet Volume 7.3 FL 7.2 FL 7.2 FL Blood Urea Nitrogen 14 MG/DL 19 MG/DL 18 MG/DL Creatinine 0.92 MG/DL 0.83 MG/DL 0.81 MG/DL Random Glucose 204 MG/DL 141 MG/DL 146 MG/DL Calcium Level 8.3 MG/DL 8.6 MG/DL 8.5 MG/DL Sodium Level 137 MEQ/L 136 MEQ/L 134 MEQ/L Potassium Level 4.0 MEQ/L 3.6 MEQ/L 3.6 MEQ/L Chloride Level 97 MEQ/L 95 MEQ/L 91 MEQ/L Carbon Dioxide Level 32.2 MEQ/L 30.8 MEQ/L 35.2 MEQ/L Anion Gap 8 MEQ/L 10 MEQ/L 8 MEQ/L Estimat Glomerular Filtration Rate 80 ML/MIN 90 ML/MIN 92 ML/MIN Imaging Last Impressions Hip and Pelvis X-Ray 07/17/17 0000 Signed Impressions: Service Date/Time: Monday, July 17, 2017 15:40 - CONCLUSION: Satisfactory postoperative appearance following right hip replacement. Amrik Dang MD Hip X-Ray 07/17/17 0000 Signed Impressions: Service Date/Time: Monday, July 17, 2017 07:10 - CONCLUSION: Satisfactory appearance post right TEDDY Jas Schulz MD Objective Remarks GENERAL: Well-nourished, well-developed pleasant male patient in [facility]. SKIN: Warm and dry. No rash. HEENT: Normocephalic. Atraumatic. Pupils equal and round. Mucous membranes pink and moist. CARDIOVASCULAR: Regular rate and rhythm. No murmur appreciated. RESPIRATORY: No accessory muscle use. Clear to auscultation. Breath sounds equal bilaterally. GASTROINTESTINAL: Abdomen soft, non-tender, nondistended. Normoactive bowel sounds x4. MUSCULOSKELETAL: No obvious deformities. Trace to 1+ bilateral lower extremity edema. Right hip with surgical dressing, CDI. NEUROLOGICAL: Awake and alert. No obvious cranial nerve deficits. Motor grossly within normal limits. Moving all extremities spontaneously. Normal speech. PSYCHIATRIC: Appropriate mood and affect; insight and judgment normal. Awake alert and oriented 3 talkative and cooperative Insight and judgment is good Mood and behavior is appropriate Procedures 07/17/17 - right total hip arthroplasty by Dr. Mcmanus Medications and IVs Current Medications Lactated Ringer's 1,000 ml @ 30 mls/hr Q24H PRN IV SEE LABEL COMMENTS Last administered on 07/17/17at 05:45; Start 07/17/17 at 05:45; Stop 07/20/17 at 05:44 ; Status DC Sodium Chloride 500 ml @ 30 mls/hr [id number] PRN IV SEE LABEL COMMENTS; Start at 05:45; Stop 07/20/17 at 05:44; Status DC Metoprolol Tartrate (Lopressor) 25 mg [employer]ELOPER PRN PO SEE LABEL COMMENTS; Start 07/17/17 at 05:45; Stop 07/20/17 at 05:44; Status DC Povidone Iodine (Betadine 5% Antisepsis Kit) 1 applic [employer]ELOPER PRN EACH NARE SEE LABEL COMMENTS Last administered on 07/17/17at 06:00; Start 07/17/17 at 05:45 ; Stop 07/20/17 at 05:44; Status DC Chlorhexidine Gluconate (Chlorhexidine 2% Cloth) 3 pack [employer]ELOPER PRN TOPICAL SEE LABEL COMMENTS Last administered on 07/17/17at 05:30; Start 07/17/17 at 05:45 ; Stop 07/20/17 at 05:44; Status DC Povidone Iodine (Betadine 7.5% Scrub) 1 applic ONCE TOPICAL Last administered on 07/17/17at 05:45; Start 07/17/17 at 05:45; Stop 07/20/17 at 05:44; Status DC Chlorhexidine Gluconate (Hibiclens 4% Top Soln) 1 applic ONCE TOPICAL ; Start at 05:45; Stop 07/20/17 at 05:44; Status DC Dexamethasone Sodium Phosphate (Decadron Inj) 10 mg ONCE ONCE IV PUSH ; Start 07/17/17 at 05:45; Stop 07/17/17 at 05:49; Status DC Cefazolin Sodium/ Dextrose 50 ml @ 100 mls/hr [employer]EL[employer] IV Last administered on 07/17/17at 06:10; Start 07/17/17 at 05:45; Stop 07/20/17 at 05:44; Status DC Tranexamic Acid 1514 mg/Sodium Chloride 115.14 ml @ 200 mls/ hr ONCE IV Last administered on 07/17/17at 06:59; Start 07/17/17 at 07:00; Stop 07/17/17 at 21:00 ; Status DC Bupivacaine Liposome 20 ml/ Sodium Chloride 60 ml @ 120 mls/hr ONCE P-ARTICULR Last administered on 07/17/17at 07:28; Start 07/17/17 at 05:45; Stop 07/18/17 at 05:44; Status DC Tranexamic Acid 3000 mg/Sodium Chloride 130 ml @ 260 mls/hr ONCE P-ARTICULR Last administered on 07/17/17at 07:28; Start 07/17/17 at 07:00; Stop 07/17/17 at 21:00; Status DC Vancomycin/Sodium Chloride 200 ml @ 200 mls/hr [employer]EL[employer] IV Last administered on 07/17/17at 06:10; Start 07/17/17 at 06:00; Stop 07/17/17 at 21:00; Status DC Gentamicin Sulfate (Gentamicin Inj) 240 mg [facility] ONCE .ROUTE Last administered on 07/17/17at 07:27; Start 07/17/17 at 06:14; Stop 07/17/17 at 06:15 ; Status DC Enalapril Maleate (Vasotec) 20 mg DAILY PO Last administered on 07/20/17at 10:17 ; Start 07/18/17 at 09:00 Finasteride (Proscar) 5 mg DAILY PO Last administered on 07/20/17 10:17; Start 07/17/17 at 09:00 Glipizide (Glucotrol) 2.5 mg BID PO Last administered on 07/20/17 10:17; Start 07/18/17 at 09:00 Hydrochlorothiazide (Hydrodiuril) 25 mg HS PO Last administered on 07/19/17at 21 :38; Start 07/17/17 at 21:00 Pravastatin Sodium (Pravachol) 20 mg DAILY PO Last administered on 07/20/17at 10 :18; Start 07/17/17 at 09:00 Tamsulosin HCl (Flomax) 0.4 mg DAILY PO Last administered on 07/20/17at 10:17; Start 07/17/17 at 10:00 Sodium Chloride 1,000 ml @ 100 mls/hr Q10H IV Last administered on 07/18/17at 04:04; Start 07/17/17 at 07:30 Cefazolin Sodium 1000 mg/Sodium Chloride 100 ml @ 200 mls/hr Q6H IV Last administered on 07/18/17at 00:00; Start 07/17/17 at 12:00; Stop 07/18/17 at 00:29 ; Status DC Miscellaneous Information ([facility] Post-op Orders (for Pharmacy)) STAT ONCE XX ; Start 07/17/17 at 06:30; Stop 07/17/17 at 07:12; Status DC Enoxaparin Sodium (Lovenox Inj) 40 mg Q24H SQ Last administered on 07/20/17at 10 :17; Start 07/18/17 at 08:00; Stop 07/27/17 at 08:01 Morphine Sulfate (Morphine Inj) 3 mg Q3H PRN IV PUSH 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; Start 07/17/17 at 06:30 Acetaminophen/ Hydrocodone Bitart ([place] 10-325 Mg) 1 tab Q4H PRN PO PAIN LESS THAN 5 ON SCALE Last administered on 07/19/17at 21:35; Start 07/17/17 at 06:30 Acetaminophen/ Hydrocodone Bitart ([place] 10-325 Mg) 2 tab Q6H PRN PO PAIN SCALE 5 TO 10 Last administered on 07/18/17at 15:48; Start 07/17/17 at 06:30 Multivitamins/ Minerals Therapeutic (Theragran M Tab) 1 tab BID PO Last administered on 07/20/17at 10:17; Start 07/18/17 at 21:00; Stop 09/16/17 at 20:59 Ondansetron HCl (Zofran Odt) 4 mg Q6H PRN PO NAUSEA OR VOMITING; Start at 07:15 Docusate Sodium (Colace) 100 mg BID PO Last administered on 07/19/17at 08:59; Start 07/18/17 at 21:00; Stop 07/19/17 at 11:21; Status DC Zolpidem Tartrate (Ambien) 5 mg HS PRN PO SLEEP; Start 07/17/17 at 06:30 Naloxone HCl (Narcan Inj) 0.4 mg UNSCH PRN IV PUSH RESPIRATORY RATE LESS THAN 10; Start 07/17/17 at 06:30 Diphenhydramine HCl (Benadryl Inj) 25 mg Q6H PRN IV PUSH ITCHING; Start at 06:30 Midazolam HCl (Versed Inj) 2 mg STK-MED ONCE .ROUTE ; Start 07/17/17 at 08:43; Stop 07/17/17 at 08:44; Status DC Fentanyl Citrate (fentaNYL INJ) 400 mcg STK-[facility] ONCE .ROUTE ; Start 07/17/17 at 08:43; Stop 07/17/17 at 08:44; Status DC Miscellaneous Information ([facility] Nursing Information) ALL NURSING DEPARTME... UNSCH PRN .XX SEE LABEL COMMENTS; Start 07/17/17 at 08:40; Stop 07/18/17 at 08: 39; Status DC Morphine Sulfate (*morphine INJ PERIprocedure ONLY) 4 mg STK-MED ONCE .ROUTE Last administered on 07/17/17at 08:58; Start 07/17/17 at 08:56; Stop 07/17/17 at 08:57; Status DC Morphine Sulfate (*morphine INJ PERIprocedure ONLY) 4 mg STK-MED ONCE .ROUTE Last administered on 07/17/17at 09:08; Start 07/17/17 at 09:05; Stop 07/17/17 at 09:06; Status DC Morphine Sulfate (*morphine INJ PERIprocedure ONLY) 4 mg STK-MED ONCE .ROUTE Last administered on 07/17/17at 09:27; Start 07/17/17 at 09:24; Stop 07/17/17 at 09:25; Status DC Propofol (Diprivan 200 Mg/20 ml Inj) 400 mg STK-MED ONCE IV ; Start 07/17/17 at 12:00; Stop 07/17/17 at 12:23; Status DC Rocuronium [place] (Zemuron Inj) 100 mg STK-MED ONCE IV PUSH ; Start 07/17/17 at 12:00; Stop 07/17/17 at 12:23; Status DC Neostigmine Methylsulfate (Prostigmine Inj) 5 mg STK-MED ONCE IV PUSH ; Start at 12:00; Stop 07/17/17 at 12:23; Status DC Glycopyrrolate (Robinul Inj) 1 mg STK-MED ONCE IV PUSH ; Start 07/17/17 at 12:00 ; Stop 07/17/17 at 12:23; Status DC Phenylephrine HCl (Neosynephrine/ NS 1000 Mcg/10ml Syr) 1,000 mcg STK-MED ONCE IV ; Start 07/17/17 at 12:00; Stop 07/17/17 at 12:23; Status DC Ephedrine Sulfate (ePHEDrine/NS 25 MG/5 ML SYR) 25 mg STK-MED ONCE IV ; Start at 12:00; Stop 07/17/17 at 12:23; Status DC Metoprolol Tartrate (Lopressor Inj) 5 mg STK-MED ONCE IV ; Start 07/17/17 at 12: 00; Stop 07/17/17 at 12:23; Status DC Esmolol HCl (Brevibloc Bolus Inj) 100 mg STK-MED ONCE IV ; Start 07/17/17 at 12: 00; Stop 07/17/17 at 12:23; Status DC Ondansetron HCl (Zofran Inj) 4 mg STK-MED ONCE IV PUSH ; Start 07/17/17 at 12:00 ; Stop 07/17/17 at 12:24; Status DC Senna/Docusate Sodium (Lydia-Colace) 1 tab BID PO Last administered on at 10:17; Start 07/19/17 at 12:00 Magnesium Hydroxide (Milk Of Magnesia Liq) 30 ml Q12H PRN PO Mild constipation Last administered on 07/19/17at 21:34; Start 07/19/17 at 11:30 Sennosides (Senokot) 17.2 mg Q12H PRN PO Moderate constipation; Start 07/19/17 at 11:30 Bisacodyl (Dulcolax Supp) 10 mg DAILY PRN RECTAL SEVERE CONSITIPATION Last administered on 07/20/17at 10:20; Start 07/19/17 at 11:30 A/P Assessment and Plan 77-year-old male with history of osteoarthritis, hypertension, hyperlipidemia, diabetes mellitus, BPH, admitted to [facility] for right total hip arthroplasty by Dr. Mcmanus. Hospitalist consulted for medical management. Osteoarthritis s/p right total hip arthroplasty: Surgery 07/17/[address] Mcmanus -Pain control with [place] prn, IV morphine prn -DVT prophylaxis with Lovenox, per Ortho -Continue physical therapy -Cleared for discharge to rehab by orthopedics, plan for d/c 07/20 Hypertension/hyperlipidemia: Chronic, stable -Continue patient's enalapril, HCTZ, statin -Monitor BP, adjust antihypertensives as needed Diabetes mellitus: Chronic, stable -Continue patient's glipizide -Monitor Accu-Cheks, cover with SSI -Diabetic diet BPH: Chronic -Continue patient's alfuzosin and finasteride -Patient voiding spontaneously Constipation: acute, last BM Sunday 07/16. Suspect opiate induced constipation. -Start on lydia-colace 1tab po bid -Constipation protocol meds with MOM prn, Dulcolax prn, Senokot prn -Discussed with RN to go prn meds if no BM today 07/19 Needs medications to have bowel movement We will adjust medications DVT prophylaxis: Lovenox Discharge Planning TO GO TO SNF TODAY Brendan Kitchen DO July 20, 2017 11:05
[2017-07-20] MEDS ORDERED: PERI PO (11:29)
[2017-07-20] MEDS ORDERED: BISA10R RECTAL (11:29)
[2017-07-20] MEDS ORDERED: MAGNESIUM HYDROXIDE SUSP 30 ML CUP PO PRN (11:30)
[2017-07-20] MEDS ORDERED: DOCUSATE SODIUM 50 MG/SENNA 8.6 MG TAB PO SCH (11:30)
[2017-07-20] MEDS ORDERED: POLYETHYLENE GLYCOL 17 GM PKG PO SCH (11:30)
[2017-07-20 11:50] VITALS: BP 115/55; PULSE 130; RESP 14; TEMP 97.8; O2SAT 96
[2017-07-20] MEDS ORDERED: SOD PHOSPHATE/SOD BIPHOSPHATE (ADULT) ENEMA 133ML PR ONE (12:30)
[2017-07-20 13:48] VITALS: PULSE 115
== END 2017-07-20 14:39 | DRG 470 ==
LOC: HSDI 05:07 → N06B 09:51
PROVIDERS: ADMIT Orthopaedic Surgery Sports Medicine; ATTEND Orthopaedic Surgery Sports Medicine
PROC: 0SR902A Replacement of Right Hip Joint with Metal on Polyethylene Synthetic Substitute, Uncemented, Open Approach (ICD-10-PCS; principal; 2017-07-17 06:41)
DX: M16.11 Unilateral primary osteoarthritis, right hip (principal); E11.9 Type 2 diabetes mellitus without complications; I10 Essential (primary) hypertension; E78.5 Hyperlipidemia, unspecified; N40.0 Benign prostatic hyperplasia without lower urinary tract symptoms; Z87.891 Personal history of nicotine dependence
CPT/HCPCS: 73502; 76000; 80048; 82948; 85027; 86850; 86900; 86901; 94150; C1776; J0690; J1580; J1650; J2250; J2270; J2370; J2405; J2710; J3010; J3370; J7030; J7120

== ENCOUNTER 2017-09-11 06:46 | Inpatient (IN) ==
[2017-09-11] MEDS ORDERED: Post-op Orders (for Pharmacy) OTHER STA (07:12)
[2017-09-11] MEDS ORDERED: Bisacodyl 10 MG Supp RECTAL PRN (07:12)
[2017-09-11] MEDS ORDERED: HYDROmorphone PF Inj 2 MG/ML Vial IV.PUSH PRN (07:12)
[2017-09-11] MEDS ORDERED: ceFAZolin 2 GM Premix Inj 2 GM/50 ML PIGGYBACK IV.SIG SCH (09:00)
[2017-09-11] MEDS ORDERED: Chlorhexidine Gluconate 2% 1 Pack (2 Cloths) TOPICAL SCH (09:15)
[2017-09-11] MEDS ORDERED: Metoprolol Tartrate 25 MG Tablet PO SCH (09:15)
[2017-09-11] MEDS ORDERED: Sodium Chlor 0.9% Inj 73.07 ML, Ropivacaine 0.5% PF Inj 24.63 ML, Ketorolac Inj 30 MG, ... P-ARTICULR SCH ×5 (09:30)
[2017-09-11] MEDS ORDERED: Dexamethasone Inj 20 MG/5 ML Vial IV.PUSH SCH (09:30)
[2017-09-11] MEDS ORDERED: Bupivacaine Liposomal PF 1.3% Inj 20 ML Vial ONE (09:33)
[2017-09-11] MEDS ORDERED: fentaNYL Citrate Inj 250 MCG/5 ML Ampul ONE (09:38)
[2017-09-11] MEDS ORDERED: Ketamine Inj 50 MG/5 ML Syringe IV.PUSH ONE (09:38)
[2017-09-11] MEDS: ceFAZolin 2 GM Premix Inj 2 GM/50 ML PIGGYBACK IV.SIG SCH ×3 (09:51→21:59)
[2017-09-11] MEDS ORDERED: Sodium Chlor 0.9% Inj 500 ML IV.SIG SCH (10:00)
[2017-09-11] MEDS ORDERED: Vancomycin Inj 1 GM/200 ML PIGGYBACK IV.SIG SCH (10:00)
[2017-09-11] MEDS ORDERED: TRANEXAMIC ACID IV.SIG SCH (10:00)
[2017-09-11] MEDS ORDERED: Tranexamic Acid Inj 3,000 MG in Sodium Chlor 0.9% Inj 100 ML P-ARTICULR SCH (10:00)
[2017-09-11] MEDS ORDERED: SODIUM CHLOR 0.9% IV.SIG SCH (10:00)
[2017-09-11] MEDS ORDERED: Labetalol HCl Inj 100 MG/20 ML Vial IV.CONT ONE (12:00)
[2017-09-11] MEDS ORDERED: Neostigmine Inj 5 MG/5 ML Syringe IV.PUSH ONE (12:00)
[2017-09-11] MEDS ORDERED: Lidocaine PF 1% Inj 5 ML Syringe INFILTRATN ONE (12:00)
[2017-09-11] MEDS ORDERED: Glycopyrrolate Inj 1 MG/5 ML Syringe IV.PUSH ONE (12:00)
--- NOTE | 2017-09-11 12:40 | MP ---
cc: Aryan Mcmanus MD DATE OF OPERATION: 09/11/2017 PREOPERATIVE DIAGNOSIS: Left knee osteoarthritis. POSTOPERATIVE DIAGNOSIS: Left knee osteoarthritis. PROCEDURE: Left total knee arthroplasty. SURGEON: Aryan Mcmanus MD MEDICAL TRANSCRIBER: CRISTAL Collins ANESTHESIA: General. ESTIMATED BLOOD LOSS: 100 mL. TOURNIQUET TIME: 47 minutes at 250 mmHg. COMPLICATIONS: None. IMPLANTS: Two DePuy Attune size 8 posterior stabilized femoral component, size 8 rotating platform tibia baseplate, size 5 mm polyethylene tibia insert, size 38 patella. JUSTIFICATION: This patient is a 77-year-old male with a history of severe osteoarthritis involving the left knee and severe disabling pain with standing, walking, ambulation and weight-bearing activities and severe pain at rest. It does interfere with activities of daily living. He had failed greater than 3 months of nonoperative conservative treatment to include medication therapy, injections, ambulatory assistive aids, home exercise program, activity modification, weight loss attempts. X-ray of the left knee revealed severe osteoarthritis with joint space narrowing, subchondral sclerosis, subchondral cyst osteophyte formation and subluxation. The patient was counseled as to the risks, benefits, and alternatives to a total knee arthroplasty. The risks were discussed, which include, but not limited to anesthesia, bleeding, infection, damage to nerves, blood vessels, pain, stiffness, failure of hardware, blood clots, pulmonary embolism, and even . The patient's pain is fair. He favored the benefits over the risks and did wish to proceed with surgery. PROCEDURE IN DETAIL: Written consent was obtained. The patient was identified by name, taken to the operating room and placed supine on the operating room table. General anesthesia was administered, as well as 2 grams of IV Ancef and 1 gram of IV vancomycin. A well-padded tourniquet was placed on the left thigh. The left lower extremity prepped and draped using Isopropyl alcohol, Hibiclens solution and ChloraPrep solution. After a timeout was performed, an Esmarch bandage was used to exsanguinate the left lower extremity. The tourniquet inflated to 250 mmHg. A longitudinal incision was made over the anterior aspect of the left knee. A medial parapatellar arthrotomy was performed. The patella was everted. A patellar resection guide was used to resect 9 mm of the patella. The size 38 mm guide was placed. Three drill holes were placed, and a 38 mm trial fit well. Attention was turned to the femur where an intramedullary guidewire was placed. The distal femoral guide was set to remove 11 mm of distal femur, 5 degrees off the anatomic valgus axis alignment. An oscillating saw was used to perform the distal femoral cut. Attention was turned to the tibia where an extramedullary tibial guide was set to remove 6 mm off the lowest portion of the medial tibial plateau. A tibial guide was pinned in place and the tibial cut was performed. A 5 mm spacer block showed full extension. Attention was turned back to the femur where the AP sizer block measured a size 8. The anterior reference 3-degree external rotation guide was used to pin a size [address] Anterior, posterior and chamfer cuts were performed. A size 8 PCL box was pinned in place and the PCL was box cut with an oscillating saw. The medial and lateral meniscus remnants were removed, as well as bone and soft tissue debris from the posterior portion of the knee. A size 8 tibial base plate was pinned in place. The tibia was drilled and punched. Trial components were evaluated final components cemented in place. With the current components, the leg could achieve full extension to 0 degrees and flexion to 140 with no evidence of tibial lift off. Varus valgus balance appeared appropriate and symmetric and the patella was noted to track centrally. With the tourniquet deflated, the Bovie cautery was used for hemostasis. The knee was thoroughly irrigated with sterile saline pulse lavage antibiotic impregnated solution. The arthrotomy incision was closed with #1 Vicryl suture, subcutaneous layer with 2-0 Vicryl suture and skin was closed with Dermabond. Sterile dressing applied. The patient tolerated the procedure well with no intraoperative complications noted. Stephen Cook, physician vet assistant, certified was present during the entire procedure to include patient positioning and the procedure itself. The medical necessity of a physician vet assistant was indicated in this case due to the complexity of the procedure. He assisted with appropriate manipulation of the leg and also retraction of muscle, tendon, bone and neurovascular structures. He assisted with preparation of bone and also implantation of the prosthetic replacement. MD PRISCA Oneil/DELTA , 12:12 PM , 12:34 PM
[2017-09-11] MEDS ORDERED: *morphine SULFATE 10 MG/ML PERIprocedure ONLY ONE ×2 (13:14→13:49)
--- NOTE | 2017-09-11 13:22 | XR ---
EXAM DATE: 09/11/2017 1:16 PM EDT AGE/SEX: 77 years / Male INDICATIONS: Post left knee surgery. CLINICAL DATA: This is the patient's initial encounter. Patient reports that signs and symptoms have been present for 1 day and indicates a pain score of Nonresponsive. MEDICAL/SURGICAL HISTORY: None. None. COMPARISON: No prior exams available for comparison. FINDINGS: Left total knee arthroplasty is present. Hardware is intact. Alignment is anatomic. CONCLUSION: Satisfactory appearance post left TKA Electronically signed by: Jas Schulz MD 09/11/2017 1:21 PM EDT
[2017-09-11] MEDS ORDERED: Dextrose 50% in Water 50 ML Vial IV.PUSH PRN (13:49)
--- NOTE | 2017-09-11 13:51 | P.CON ---
History of Present Illness Service: [facility] Consult date: 09/11/17 Requesting Physician: Aryan Mcmanus Reason for Consult: Assist with medical management Primary Care Provider: Bubba Treadwell MD Family Provider: Bubba Treadwell MD Chief Complaint: Left Knee Pain History of Present Illness: Patient is a 77-year-old male with primary medical history of HTN, DM, HLD, osteoarthritis of the left knee who came in for an elective surgery of left knee. Patient is status post left total knee arthroplasty by Dr. Mcmanus. States he is doing well. States he is thirsty and jokingly asked "for a beer." Denies pain and discomfort. Denies SOB/ dyspnea. Denies chest pain, palpitations, headaches, dizziness. Denies fevers, chills, n/v/d. Denies dysuria. Review of Systems All other systems reviewed negative except as stated in HPI [facility] - History History Provided By: Patient - Medical History Medical History: Medical History (Last Updated 09/11/17 @ 09:09 by Noemy Santana) Prostate enlargement Arthritis Diabetes Diminished hearing High cholesterol History of dental problems Hypertension Kidney stones Metal bone fixation hardware in place - Surgical History Surgical History: Surgical History (Last Reviewed 09/11/17 @ 08:43 by Noemy Santana) History of total right hip replacement Hx of cataract surgery - Family History Family History: Family History (Last Updated 09/11/17 @ 13:45 by ROSMERY De Los Santos) Mother Family history of cancer Father Heart attack Sister Heart attack - Tobacco History Second Hand Smoke Exposure: No Tobacco Use In Past 30 Days: No Smoking Status: Former smoker Tobacco Type: Cigarettes - Alcohol History How Often Do You Have a Drink Containing Alcohol: 2 to 3 times a week - Substance Use History Substance History: No History of Abuse - Travel History Recent Travel in the [place] Within the Last 8 Weeks: No Recent Travel Out of the Country Within the Last 8 Weeks: No Medications and Allergies Active Medications: Active Medications Hydrocodone Bitart/Acetaminophen ([place] 7.5/325) 1 tab PO Q4H PRN PRN Reason: PAIN LESS THAN 5 ON SCALE Hydrocodone Bitart/Acetaminophen ([place] 7.5/325) 2 tab PO Q6H PRN PRN Reason: PAIN SCALE 5 TO 10 Al Hydroxide/Mg Hydroxide (Milk Of Magnesia Liq) 30 ml PO BID PRN PRN Reason: Mild Constipation Aspirin (Aspirin Chew) 81 mg PO BID [facility] Bisacodyl (Dulcolax Supp) 10 mg RECTAL DAILY PRN PRN Reason: SEVERE CONSITIPATION Chlorhexidine Gluconate (Chlorhexidine 2% Cloth) 3 pack TOPICAL RADIO BOARD OPERATOR ANNOUNCER [facility] Stop: 09/14/17 09:04 Last Admin: 09/11/17 08:40 Dose: 3 pack Sodium Chloride 73.07 ml/Ropivacaine 24.63 ml/Ketorolac Tromethamine 30 mg/ Epinephrine HCl 0.5 mg/cloNIDine PF Inj 80 mcg 0 ml P-ARTICULR ONCE [facility] Stop: 09/11/17 16:00 Last Admin: 09/11/17 10:58 Dose: 98 bag Dexamethasone Sodium Phosphate (Decadron Inj) 10 mg IV.PUSH [employer]IO [employer]ARD OPERATOR ANN[employer]NC[employer] [facility] Stop: 09/11/17 16:00 Last Admin: 09/11/17 10:21 Dose: 10 mg Diphenhydramine HCl (Benadryl) 25 mg PO Q6H PRN PRN Reason: ITCHING Enalapril Maleate (Vasotec) 20 mg PO DAILY [facility] Finasteride (Proscar) 5 mg PO DAILY [facility] Glipizide (Glucotrol) 2.5 mg PO BID [facility] Hydromorphone HCl (Dilaudid Pf Inj) 1 mg IV.PUSH Q3H PRN PRN Reason: BREAKTHROUGH PAIN Lactated Ringer's (Lr 1000 Ml Inj) 1,000 mls @ 80 mls/hr IV.CONT .[id number] [facility] Lactated Ringer's (Lr 1000 Ml Inj) 1,000 mls @ 30 mls/hr IV.SIG .Q24H [facility] Stop: 09/14/17 09:04 Last Admin: 09/11/17 09:00 Dose: 30 mls/hr Sodium Chloride (Ns Inj) 500 mls @ 30 mls/hr IV.SIG .Q10H [facility] Stop: 09/14/17 09:04 Tranexamic Acid 1,528 mg/ (Sodium Chloride) 115.28 mls @ 200 mls/hr IV.SIG ONCE [facility] Stop: 09/11/17 16:00 Last Admin: 09/11/17 10:29 Dose: 200 mls/hr Tranexamic Acid 3,000 mg/ (Sodium Chloride) 130 mls @ 200 mls/hr P-ARTICULR ONCE [facility] Stop: 09/11/17 15:00 Last Admin: 09/11/17 10:58 Dose: 200 mls/hr Vancomycin/Sodium Chloride (Vancomycin Inj) 1 gm in 200 mls @ 200 mls/hr IV.SIG RADIO BOARD OPERATOR ANNOUNC[employer] [facility] Stop: 09/15/17 09:59 Last Admin: 09/11/17 09:50 Dose: 200 mls/hr Cefazolin Sodium/Dextrose (Ancef 2 Gm Premix Inj) 2 gm in 50 mls @ 100 mls/hr IV.SIG [employer]IO BOARD OPERATOR ANN[employer]NC[employer] [facility] Stop: 09/15/17 09:29 Last Admin: 09/11/17 09:51 Dose: 100 mls/hr Cefazolin Sodium/Dextrose (Ancef 2 Gm Premix Inj) 2 gm in 50 mls @ 100 mls/hr IV.SIG Q6H [facility] Stop: 09/12/17 04:29 Lactulose (Lactulose Liq) 30 ml PO DAILY PRN PRN Reason: SEVERE CONSITIPATION Metoprolol Tartrate (Lopressor) 25 mg PO [employer] OPERATOR [employer] [facility] Stop: 09/14/17 09:04 Miscellaneous Information ([facility] [place] Nursing Information) 1 each OTHER UNSCH PRN PRN Reason: SEE LABEL COMMENTS Stop: 09/12/17 12:41 Multivitamins/Minerals (Theragran-M) 1 tab PO BID [facility] Stop: 11/10/17 08:59 Ondansetron HCl (Zofran Inj) 4 mg IV.PUSH Q6H PRN PRN Reason: NAUSEA OR VOMITING Povidone Iodine (Betadine 5% Antisepsis Kit) 1 applicatio EACH NARE [employer]ARD OPERATOR ANN[employer]NC[employer] [facility] Stop: 09/14/17 09:04 Last Admin: 09/11/17 09:29 Dose: 1 applicatio Pravastatin Sodium (Pravachol) 20 mg PO DAILY [facility] Senna/Docusate Sodium (Lydia-Colace) 1 tab PO BID [facility] Sennosides (Senokot) 17.2 mg PO BID PRN PRN Reason: Moderate Constipation Sodium Chloride (Ns Flush) 2 ml IV.FLUSH BID [facility] Sodium Chloride (Ns Flush) 2 ml IV.FLUSH PRN PRN PRN Reason: FLUSH AFTER USING IV ACCESS Zolpidem Tartrate (Ambien) 5 mg PO HS PRN PRN Reason: INSOMNIA Allergies Allergy/AdvReac Type Severity Reaction Status Date / Time No Known Allergies Allergy Verified 09/11/17 08:41 Home Medications Medication Instructions Recorded Confirmed Type cholecalciferol (vitamin D3) 2,000 unit PO DAILY 08/25/17 09/11/17 History enalapril maleate 20 mg PO DAILY 08/25/17 09/11/17 History finasteride 5 mg PO DAILY 08/25/17 09/11/17 History glipizide 2.5 mg PO BID 08/25/17 09/11/17 History meloxicam [Mobic] 15 mg PO DIRECTED 08/25/17 09/11/17 History pravastatin 20 mg PO DAILY 08/25/17 09/11/17 History Physical Exam Vital signs: Vital Signs 09/11/17 08:57 09/11/17 09:10 09/11/17 09:16 Temperature 97.5 F L Pulse Rate 70 Respiratory Rate 16 Blood Pressure 171/88 H Pulse Oximetry 98 97 09/11/17 12:45 09/11/17 13:00 09/11/17 13:15 Temperature 97.5 F L Pulse Rate 83 88 78 Respiratory Rate 11 L 16 16 Blood Pressure 137/66 139/67 158/74 H Pulse Oximetry 100 100 100 Intake & Output 09/10/17 09/11/17 09/11/17 18:59 06:59 18:59 Intake Total 2300 / 2300 Output Total 200 / 200 Balance 2100 / 2100 Weight 101.9 kg Intake: Anesthesia Amount 2300 / 2300 Output: Estimated Blood Loss 200 / 200 Other: Weight On Admission 101.9 kg Narrative: GENERAL: This is a well-nourished, well-developed patient, in no apparent distress. SKIN: Warm and dry. HEENT: Normocephalic. Pupils equal round and reactive. Nose without bleeding. Airway patent. NECK: Trachea midline. CARDIOVASCULAR: Regular rate and rhythm without murmurs, gallops, or rubs. RESPIRATORY: Clear to auscultation. Breath sounds equal bilaterally. No wheezes , rales, or rhonchi. GASTROINTESTINAL: Abdomen soft, non-tender, nondistended. Bowel Sounds normoactive x4. MUSCULOSKELETAL: Extremities without clubbing, cyanosis. Left lower extremity Kaden wrap, palpable pulse, warm and dry. Able to move. NEUROLOGICAL: Awake and alert. Oriented to time, place, person. No focal neuro deficit. Moves all extremities. Normal speech. Assessment and Plan - Assessment (1) Osteoarthritis of left knee Code(s): M17.12 - Unilateral primary osteoarthritis, left knee Status: Acute - Plan Patient is a 77-year-old male with primary medical history of HTN, DM, HLD, osteoarthritis of the left knee who came in for an elective surgery of left knee. Status post left total knee arthroplasty, Dr. Mcmanus, 09/11/17 Left knee osteoarthritis -Orthopedic surgeon following -Pain management with bowel regimen -PT eval and treat DM 2 -Hold metformin for now, glipizide , start insulin sliding scale, diabetic diet -Monitor Accu-Cheks HTN HLD -Continue home medication Enalapril 20 mg daily, pravastatin, aspirin 81 -Monitor BP trend DVT Prop SCDs, chemical prop by ortho Code Status: Full Code Discussed Condition With: Patient, nursing Discharge Planning: DC disposition by orthopedics
[2017-09-11] MEDS ORDERED: fentaNYL Citrate Inj 100 MCG/2 ML Ampul ONE (15:44)
[2017-09-11] MEDS ORDERED: Zolpidem Tartrate 5 MG Tablet PO PRN (21:00)
[2017-09-11] MEDS: Finasteride 5 MG Tablet PO SCH (21:49)
[2017-09-11] MEDS: Multivitamin/Minerals Therapeutic Tablet PO SCH ×2 (21:49→21:51)
[2017-09-11] MEDS: glipiZIDE 5 MG Tablet PO SCH ×2 (21:49→21:50)
[2017-09-11] MEDS: Senna/Docusate Sodium 8.6/50 MG Tablet PO SCH ×2 (21:49→21:51)
[2017-09-11] MEDS: Insulin NovoLOG Aspart Correctional Sugar Inj SQ SCH ×2 (21:53→21:54)
[2017-09-12] MEDS: ceFAZolin 2 GM Premix Inj 2 GM/50 ML PIGGYBACK IV.SIG SCH ×2 (05:00→05:36)
[2017-09-12 06:28] LABS: Hematocrit 34.9 % (39.0-51.0); Hemoglobin 11.6 gm/dL (13.0-17.0)
[2017-09-12 06:31] LABS: Calcium 8.5 mg/dL (8.5-10.1); Carbon Dioxide 27.8 meq/L (21.0-32.0); Potassium 3.9 meq/L (3.5-5.1)
--- NOTE | 2017-09-12 08:44 | P.PNOP ---
Subjective Interval history: pain tolerable Physical Exam Vital signs: Vital Signs 09/11/17 08:57 09/11/17 09:10 09/11/17 09:16 Temperature 97.5 F L Pulse Rate 70 Respiratory Rate 16 Blood Pressure 171/88 H Pulse Oximetry 98 97 09/11/17 12:45 09/11/17 13:00 09/11/17 13:15 Temperature 97.5 F L Pulse Rate 83 88 78 Respiratory Rate 11 L 16 16 Blood Pressure 137/66 139/67 158/74 H Pulse Oximetry 100 100 100 09/11/17 13:30 09/11/17 13:45 09/11/17 14:00 Temperature Pulse Rate 65 65 76 Respiratory Rate 10 L 10 L 11 L Blood Pressure 158/79 H 145/67 H 138/64 Pulse Oximetry 99 100 99 09/11/17 15:00 09/11/17 15:45 09/11/17 16:15 Temperature 97.5 F L 97.1 F L Pulse Rate 93 H 82 83 Respiratory Rate 15 16 16 Blood Pressure 147/64 H 147/60 H 124/67 Pulse Oximetry 98 98 98 09/11/17 20:35 09/12/17 00:20 09/12/17 04:00 Temperature 97.2 F L 97.8 F 97.9 F Pulse Rate 67 89 97 H Respiratory Rate 16 16 16 Blood Pressure 123/57 L 118/69 135/72 Pulse Oximetry 98 98 95 09/12/17 08:00 Temperature 98.3 F Pulse Rate 73 Respiratory Rate 18 Blood Pressure 122/58 L Pulse Oximetry 97 Intake & Output 09/11/17 09/12/17 09/12/17 18:59 06:59 18:59 Intake Total 2610 / 2610 1170 / 1170 Output Total 200 / 200 Balance 2410 / 2410 1170 / 1170 Weight 101.605 kg 101.6 kg Intake: IV 50 / 50 450 / 450 LR 1000 mL Inj 1,000 ML @ 80 250 / 250 mls/hr IV.CONT .[id number] [facility] Rx# :[id number] Ancef 2 GM Premix Inj 2 gm In 50 / 50 200 / 200 50 ml @ 100 mls/hr IV.SIG COMMERCIAL SALES DIRECTOR [facility] Rx#:[id number] Oral 260 / 260 720 / 720 Anesthesia Amount 2300 / 2300 Output: Estimated Blood Loss 200 / 200 Other: # Voids 2 4 # Bowel Movements 0 Weight On Admission 101.9 kg Narrative: in chair, nad dressing c/d/i neg homans nvi Results - Labs CBC & Chem 7: 09/12/17 05:36 09/12/17 05:36 Laboratory Results - last 24 hr 09/11/17 09/11/17 09/12/17 09:04 21:37 05:36 Hgb 11.6 L Hct 34.9 L Sodium Potassium Chloride Carbon Dioxide Anion Gap BUN Creatinine Estimated GFR POC Glucose 291 H Random Glucose Calcium Blood Type A Positive Antibody Screen Negative 09/12/17 09/12/17 05:36 07:29 Hgb Hct Sodium 141 Potassium 3.9 Chloride 104 Carbon Dioxide 27.8 Anion Gap 9 BUN 15 Creatinine 1.18 Estimated GFR 60 L POC Glucose 190 H Random Glucose 176 H Calcium 8.5 Blood Type Antibody Screen - Imaging Impressions Knee X-Ray 09/11/17 07:09 CONCLUSION: Satisfactory appearance post left TKA Assessment and Plan - Ortho Post Op Day # 1 - Assessment and Plan s/p L TKA wbat ok to maintain dressing unless saturated asa 81 PT d/c planning to snf - [facility] f/up dr. cortes 2 weeks
[2017-09-12] MEDS: glipiZIDE 5 MG Tablet PO SCH ×2 (09:32→22:49)
[2017-09-12] MEDS: Multivitamin/Minerals Therapeutic Tablet PO SCH ×2 (09:33→22:50)
[2017-09-12] MEDS: Senna/Docusate Sodium 8.6/50 MG Tablet PO SCH ×2 (09:33→22:50)
[2017-09-12] MEDS: Finasteride 5 MG Tablet PO SCH (09:34)
[2017-09-12] MEDS: Insulin NovoLOG Aspart Correctional Sugar Inj SQ SCH ×4 (09:37→22:49)
--- NOTE | 2017-09-12 12:52 | P.PN ---
Subjective Interval history: Follow up for left total knee arthroplasty. Patient is currently doing well. Denies any chest pain, shortness of breath, fever or chills. Physical Exam Vital signs: Vital Signs 09/11/17 13:00 09/11/17 13:15 09/11/17 13:30 Temperature Pulse Rate 88 78 65 Respiratory Rate 16 16 10 L Blood Pressure 139/67 158/74 H 158/79 H Pulse Oximetry 100 100 99 09/11/17 13:45 09/11/17 14:00 09/11/17 15:00 Temperature Pulse Rate 65 76 93 H Respiratory Rate 10 L 11 L 15 Blood Pressure 145/67 H 138/64 147/64 H Pulse Oximetry 100 99 98 09/11/17 15:45 09/11/17 16:15 09/11/17 20:35 Temperature 97.5 F L 97.1 F L 97.2 F L Pulse Rate 82 83 67 Respiratory Rate 16 16 16 Blood Pressure 147/60 H 124/67 123/57 L Pulse Oximetry 98 98 98 09/12/17 00:20 09/12/17 04:00 09/12/17 08:00 Temperature 97.8 F 97.9 F 98.3 F Pulse Rate 89 97 H 73 Respiratory Rate 16 16 18 Blood Pressure 118/69 135/72 122/58 L Pulse Oximetry 98 95 97 09/12/17 12:00 Temperature 98.0 F Pulse Rate 84 Respiratory Rate 18 Blood Pressure 117/56 L Pulse Oximetry 96 Intake & Output 09/11/17 09/12/17 09/12/17 18:59 06:59 18:59 Intake Total 2610 / 2610 1170 / 1170 Output Total 200 / 200 Balance 2410 / 2410 1170 / 1170 Weight 101.605 kg 101.6 kg Intake: IV 50 / 50 450 / 450 LR 1000 mL Inj 1,000 ML @ 80 250 / 250 mls/hr IV.CONT .[id number] [facility] Rx# :[id number] Ancef 2 GM Premix Inj 2 gm In 50 / 50 200 / 200 50 ml @ 100 mls/hr IV.SIG APPLICATION ARCHITECT MANAGER [facility] Rx#:[id number] Oral 260 / 260 720 / 720 Anesthesia Amount 2300 / 2300 Output: Estimated Blood Loss 200 / 200 Other: # Voids 2 4 Date of Last Bowel Movement 09/11/17 # Bowel Movements 0 Weight On Admission 101.9 kg Narrative: GENERAL: This is a well-nourished, well-developed patient, in no apparent distress. SKIN: Warm and dry. HEENT: Normocephalic. Pupils equal round and reactive. Nose without bleeding. Airway patent. NECK: Trachea midline. CARDIOVASCULAR: Regular rate and rhythm without murmurs, gallops, or rubs. RESPIRATORY: Clear to auscultation. Breath sounds equal bilaterally. No wheezes , rales, or rhonchi. GASTROINTESTINAL: Abdomen soft, non-tender, nondistended. Bowel Sounds normoactive x4. MUSCULOSKELETAL: Extremities without clubbing, cyanosis. Left lower extremity Kaden wrap, palpable pulse, warm and dry. Able to move. NEUROLOGICAL: Awake and alert. Oriented to time, place, person. No focal neuro deficit. Moves all extremities. Normal speech. Results - Labs CBC & Chem 7: 09/12/17 05:36 09/12/17 05:36 Laboratory Results - last 24 hr 09/11/17 09/12/17 09/12/17 21:37 05:36 05:36 Hgb 11.6 L Hct 34.9 L Sodium 141 Potassium 3.9 Chloride 104 Carbon Dioxide 27.8 Anion Gap 9 BUN 15 Creatinine 1.18 Estimated GFR 60 L POC Glucose 291 H Random Glucose 176 H Calcium 8.5 09/12/17 09/12/17 07:29 11:28 Hgb Hct Sodium Potassium Chloride Carbon Dioxide Anion Gap BUN Creatinine Estimated GFR POC Glucose 190 H 125 H Random Glucose Calcium - Imaging Impressions Knee X-Ray 09/11/17 07:09 CONCLUSION: Satisfactory appearance post left TKA Assessment and Plan - Assessment (1) Osteoarthritis of left knee Code(s): M17.12 - Unilateral primary osteoarthritis, left knee Status: Acute - Plan Patient is a 77-year-old male with primary medical history of HTN, DM, HLD, osteoarthritis of the left knee who came in for an elective surgery of left knee. Status post left total knee arthroplasty, Dr. Mcmanus, 09/11/17 Left knee osteoarthritis -Orthopedic surgeon following -Pain management with bowel regimen -PT eval and treat DM 2 -Currently on glipizide 2.5 mg twice daily as well as sliding scale insulin. -Last blood sugar 125. HTN HLD -Continue home medication Enalapril 20 mg daily, pravastatin, aspirin 81 Full code. Aspirin 81 mg twice daily Likely discharge on 09/14/2017.
[2017-09-13] MEDS: glipiZIDE 5 MG Tablet PO SCH ×2 (08:56→21:53)
[2017-09-13] MEDS: Multivitamin/Minerals Therapeutic Tablet PO SCH ×2 (08:56→21:54)
[2017-09-13] MEDS: Senna/Docusate Sodium 8.6/50 MG Tablet PO SCH ×2 (08:56→21:54)
[2017-09-13] MEDS: Insulin NovoLOG Aspart Correctional Sugar Inj SQ SCH ×4 (09:00→21:56)
[2017-09-13] MEDS: Finasteride 5 MG Tablet PO SCH (09:03)
--- NOTE | 2017-09-13 09:45 | P.PN ---
Subjective Interval history: Follow up for left total knee arthroplasty. Patient is currently doing well. Sitting in his chair. However, he complains of frequent urination. He denies any dysuria or hematuria. His frequent urination is nothing new. It happens at home as well. Physical Exam Vital signs: Vital Signs 09/12/17 12:00 09/12/17 15:42 09/12/17 20:30 Temperature 98.0 F 98 F 97.3 F L Pulse Rate 84 73 79 Respiratory Rate 18 17 16 Blood Pressure 117/56 L 114/59 L 118/56 L Pulse Oximetry 96 96 98 09/13/17 00:30 09/13/17 05:18 Temperature 97.8 F Pulse Rate 57 L Respiratory Rate 17 16 Blood Pressure 120/58 L Pulse Oximetry 95 Intake & Output 09/12/17 09/13/17 09/13/17 18:59 06:59 18:59 Intake Total 1200 / 1200 960 / 960 Balance 1200 / 1200 960 / 960 Weight 101.6 kg Intake: Oral 1200 / 1200 960 / 960 Other: # Voids 4 4 Date of Last Bowel Movement 09/11/17 # Bowel Movements 0 Narrative: GENERAL: This is a well-nourished, well-developed patient, in no apparent distress. SKIN: Warm and dry. HEENT: Normocephalic. Pupils equal round and reactive. Nose without bleeding. Airway patent. NECK: Trachea midline. CARDIOVASCULAR: Regular rate and rhythm without murmurs, gallops, or rubs. RESPIRATORY: Clear to auscultation. Breath sounds equal bilaterally. No wheezes , rales, or rhonchi. GASTROINTESTINAL: Abdomen soft, non-tender, nondistended. Bowel Sounds normoactive x4. MUSCULOSKELETAL: Extremities without clubbing, cyanosis. Left lower extremity Kaden wrap, palpable pulse, warm and dry. Able to move. NEUROLOGICAL: Awake and alert. Oriented to time, place, person. No focal neuro deficit. Moves all extremities. Normal speech. Results - Labs CBC & Chem 7: 09/12/17 05:36 09/12/17 05:36 Laboratory Results - last 24 hr 09/12/17 09/12/17 09/12/17 11:28 15:44 21:19 POC Glucose 125 H 134 H 275 H 09/13/17 08:55 POC Glucose 138 H Assessment and Plan - Assessment (1) Osteoarthritis of left knee Code(s): M17.12 - Unilateral primary osteoarthritis, left knee Status: Acute - Plan Patient is a 77-year-old male with primary medical history of HTN, DM, HLD, osteoarthritis of the left knee who came in for an elective surgery of left knee. Status post left total knee arthroplasty, Dr. Mcmanus, 09/11/17 Left knee osteoarthritis -Orthopedic surgeon following -Pain management with bowel regimen. No bowel movement yet. -PT eval and treat DM 2 -Currently on glipizide 2.5 mg twice daily as well as sliding scale insulin. -Last blood sugar 138. HTN HLD -Continue home medication Enalapril 20 mg daily, pravastatin, aspirin 81 Frequent urination Benign prostatic hyperplasia -Patient is currently on finasteride. -We will check postvoid residual. He will likely benefit from Flomax as well. Full code. Aspirin 81 mg twice daily.
--- NOTE | 2017-09-13 10:59 | P.PNOP ---
Subjective Interval history: doing well. pain tolerable. knee is sore. Physical Exam Vital signs: Vital Signs 09/12/17 12:00 09/12/17 15:42 09/12/17 20:30 Temperature 98.0 F 98 F 97.3 F L Pulse Rate 84 73 79 Respiratory Rate 18 17 16 Blood Pressure 117/56 L 114/59 L 118/56 L Pulse Oximetry 96 96 98 09/13/17 00:30 09/13/17 05:18 Temperature 97.8 F Pulse Rate 57 L Respiratory Rate 17 16 Blood Pressure 120/58 L Pulse Oximetry 95 Intake & Output 09/12/17 09/13/17 09/13/17 18:59 06:59 18:59 Intake Total 1200 / 1200 960 / 960 Balance 1200 / 1200 960 / 960 Weight 101.6 kg Intake: Oral 1200 / 1200 960 / 960 Other: # Voids 4 4 Date of Last Bowel Movement 09/11/17 09/11/17 # Bowel Movements 0 Narrative: sitting in chair with ice on knee, nad dressing c/d/i neg homans nvi Results - Labs CBC & Chem 7: 09/12/17 05:36 09/12/17 05:36 Laboratory Results - last 24 hr 09/12/17 09/12/17 09/12/17 11:28 15:44 21:19 POC Glucose 125 H 134 H 275 H 09/13/17 08:55 POC Glucose 138 H Assessment and Plan - Ortho Post Op Day # 2 - Assessment and Plan s/p L TKA wbat ok to maintain dressing unless saturated asa 81 PT ice d/c planning to snf - [facility] f/up dr. cortes 2 weeks
[2017-09-13 17:25] VITALS: RESP 18
--- NOTE | 2017-09-14 08:00 | P.PNOP ---
Subjective Interval history: pain controlled with the meds. Physical Exam Vital signs: Vital Signs 09/13/17 08:00 09/13/17 12:00 09/13/17 16:00 Temperature 98.2 F 98 F 98.1 F Pulse Rate 99 H 70 80 Respiratory Rate 18 Blood Pressure 126/62 124/60 127/70 Pulse Oximetry 97 96 97 09/13/17 20:00 09/14/17 00:00 09/14/17 01:11 Temperature 97.6 F 98.2 F Pulse Rate 99 H 103 H Respiratory Rate 18 Blood Pressure 128/62 127/64 Pulse Oximetry 98 99 Intake & Output 09/13/17 09/14/17 09/14/17 18:59 06:59 18:59 Intake Total 2245.28 / 2245.28 Balance 2245.28 / 2245.28 Weight 101.9 kg Intake: IV 1445.28 / 1445.28 LR 1000 mL Inj 1,000 ML @ 30 1000 / 1000 mls/hr IV.SIG .Q24H [facility] Rx#: [id number] Vancomycin Inj 1 gm In 200 ml @ 200 / 200 200 mls/hr IV.SIG PROJECT MANAGER [employer] [facility] Rx#:[id number] Oral 800 / 800 Other: # Voids 5 3 Date of Last Bowel Movement 09/11/17 09/11/17 # Bowel Movements 0 Narrative: sitting in chair, nad dressing c/d/i neg leonora nvi Results - Labs CBC & Chem 7: 09/12/17 05:36 09/12/17 05:36 Laboratory Results - last 24 hr 09/13/17 09/13/17 09/13/17 08:55 12:42 18:20 POC Glucose 138 H 157 H 163 H 09/13/17 20:05 POC Glucose 231 H Assessment and Plan - Ortho Post Op Day # 3 - Assessment and Plan s/p L TKA wbat ok to maintain dressing unless saturated asa 81 PT ice needs to have BM d/c planning to snf - [facility] f/up dr. cortes 2 weeks
[2017-09-14 08:55] VITALS: BP 139/60; PULSE 109; TEMP 97.7; O2SAT 96
[2017-09-14] MEDS: Finasteride 5 MG Tablet PO SCH (10:26)
[2017-09-14] MEDS: Multivitamin/Minerals Therapeutic Tablet PO SCH (10:26)
[2017-09-14] MEDS: Senna/Docusate Sodium 8.6/50 MG Tablet PO SCH (10:26)
[2017-09-14] MEDS: glipiZIDE 5 MG Tablet PO SCH (10:27)
--- NOTE | 2017-09-21 11:17 | MD ---
cc: Aryan Mcmanus MD DATE OF DISCHARGE: 09/14/2017 ADMITTING DIAGNOSIS: Severe degenerative osteoarthritis, left knee. DISCHARGE DIAGNOSIS: Severe degenerative osteoarthritis, left knee. HISTORY OF PRESENT ILLNESS: Mr. Gunter is a 77-year-old male who is a patient of Dr[facility]. He has currently been treated for severe and progressive left knee pain. The patient states the pain has been progressive for numerous years and is currently inhibiting his ability to ambulate safely. He states he has a severe aching sensation with weightbearing activities. He has no alleviating factors, although in the past, he has tried medications, bracing, physical therapy, home exercises and multiple corticosteroid injections without long lasting relief of symptoms. He does have x-ray evidence of severe degenerative changes of the left knee joint. While in the office, the patient was counseled on the diagnosis and treatment options. The risks, benefits and indications all were discussed. The patient did elect to proceed with surgical intervention to include a left total knee arthroplasty. DATE OF SURGERY: 09/11/2017, left total knee arthroplasty. Postop after surgery, the patient admitted to [facility] where he received appropriate medical management, pain control, DVT prophylaxis, as well as physical therapy. DISCHARGE: Once being discharged from the hospital, the patient is cleared to go to a half-way facility. He is in stable condition. He may weight bear as tolerated. He has been instructed on wound care management. He has been provided prescriptions for pain control and DVT prophylaxis medication. He has also been provided a followup appointment approximately 2 weeks from his date of surgery. The patient has asked appropriate questions, which have been answered. The patient is cleared for discharge. Dictated by CRISTAL Jacobs Aryan Mcmanus MD JWM/DL , 08:02 AM , 08:17 AM
== END 2017-09-14 12:16 ==
LOC: HSDI 06:46 → N06 16:10
PROVIDERS: ADMIT Orthopaedic Surgery Sports Medicine; ATTEND Orthopaedic Surgery Sports Medicine